=== PATIENT | female | born 1940 | race Asian ===

== ENCOUNTER 2018-06-07 11:00 | Emergency (ER) | payer BC ==
--- NOTE | 2018-06-07 11:06 | PDOC ---
History of Present Illness - General Chief Complaint: Injury Stated Complaint: left ankle pain History Source: Patient Exam Limitations: No Limitations - History of Present Illness Initial Comments: 06/07/18 11:19 This is a 77 year old female with a history of HTN, HLD, DMII, who presents to ER with complaints of left ankle pain after tripping over a acorn yesterday. Patient states that her foot and ankle went inwards. Pain is mostly the lateral aspect of ankle with increased swelling. She has tried icing area, elevating leg , and wearing an [place] bandage, and Tylenol, without relief. She did not loose balance or injury any other area. She denies chest pain, sob, fever, chills, numbness, tingling. Pain is relieved with elevated, worse with weight bearing. She has sprained affected area 2-3 times in the past. NO surgeries or fractures. PMH:HTN, HLD, DMII PSH: none Social hx; from [place], lives with , denies tobacco, alcohol or drug use Allergies:none Past History - Past Medical History Allergies/Adverse Reactions: Allergies Allergy/AdvReac Type Severity Reaction Status Date / Time No Known Allergies Allergy Verified 06/07/18 11:04 Home Medications: Ambulatory Orders Aspirin [Aspir 81] 325 mg PO DAILY 04/08/14 Ramipril [Altace] 10 mg PO BID 06/07/18 Anemia: No Asthma: No Cancer: No Cardiac Disorders: No CVA: No COPD: No CHF: No Dementia: No Diabetes: Yes GI Disorders: No Disorders: No HTN: Yes Hypercholesterolemia: Yes Liver Disease: No Seizures: No Thyroid Disease: No - Surgical History Abdominal Surgery: Yes Appendectomy: No Cardiac Surgery: No Cholecystectomy: Yes Lung Surgery: No Neurologic Surgery: No Orthopedic Surgery: No - Suicide/Smoking/Psychosocial Hx Smoking History: Never smoked Hx Alcohol Use: Yes Drug/Substance Use Hx: No Substance Use Type: Alcohol Hx Substance Use Treatment: No Review of Systems - Review of Systems Able to Perform ROS?: Yes Is the patient limited [place] proficient: No Constitutional: No: Chills, Diaphoresis, Fever HEENTM: No: Blurred Vision Respiratory: No: Cough, Shortness of Breath Cardiac (ROS): Yes: Edema (left ankle). No: Chest Pain Musculoskeletal: Yes: Joint Swelling (ankle swelling after injury), Muscle Pain , Muscle Weakness. No: Back Pain Neurological: No: Headache, Numbness, Paresthesia, Tingling *Physical Exam - Physical Exam General Appearance: Yes: Appropriately Dressed Respiratory/Chest: positive: Lungs Clear, Normal Breath Sounds Cardiovascular: positive: Regular Rhythm, Regular Rate Musculoskeletal: positive: Decreased Range of Motion (left ankle) Extremity: positive: Swelling, Erythema, Other (left ankle swelling; decreased ROM on eversion of left foot, severe tenderness to palpation of lateral malleolus; metatarssal bones intact; no pain with palpation of head of fibula) Medical Decision Making - Medical Decision Making 06/07/18 11:32 This is a 77 year old female with a history of DMII, HTN, HLD, left ankle sprains, who presents after injury to left ankle. Left ankle sprain, r/o fracture. Will get xray of left ankle. 06/07/18 11:49 -ankle xray ; negative for acute fracture -advise rest; elevated; ice; Tylenol; Motrin for pain -will also refer to orthopedic surgeon *DC/Admit/Observation/Transfer Diagnosis at time of Disposition: Ankle sprain Qualifiers: Involved ligament of ankle: tibiofibular ligament Laterality: left - Discharge Dispostion Disposition: HOME Condition at time of disposition: Stable Decision to Admit order: No - Referrals Referrals: Christiano Lara MD [Staff Physician] - - Patient Instructions Printed Discharge Instructions: Ankle Sprain Additional Instructions: Ms. Johnson, you have sprain you ankle. Please continue with supportive therapy, including rest, ice, pain control and less weight bearing, [place] bandage. Use your cane for support. We have given you information of an orthopedic surgeon if necessary. If you experience any worsening of symptoms including inability to ambulate, fever, fall, please return to the emergency room. - Post Discharge Activity
[2018-06-07 11:08] VITALS: BP 153/67; PULSE 64; TEMP 98.4; BMI 26.9
--- NOTE | 2018-06-07 12:25 | PDOC ---
Attending Attestation - Resident Resident Name: Isabella Allen - ED Attending Attestation I have performed the following: I have examined & evaluated the patient, The case was reviewed & discussed with the resident, I agree w/resident's findings & plan, Exceptions are as noted - HPI HPI: 06/07/18 12:23 Inversion injury of the left ankle. Pain and swelling laterally. Pain with weightbearing, limping, using a cane. Did not fall. No other injuries - Physicial Exam PE: 06/07/18 12:24 Left ankle shows soft tissue swelling laterally, point tenderness over the lateral malleolus, no fifth metatarsal deformity or tenderness. Pulses full. No sensory deficits. X-ray: Soft tissue swelling, no fracture - Medical Decision Making 06/07/18 12:24 Assessment: Ankle sprain Plan: Rest ice and elevate ankle support. Patient has crutches and a cane for use if needed. Follow-up orthopedist if no improvement. Adequately ambulatory in no significant pain upon discharge with to follow-up as directed.
== END 2018-06-07 12:01 | disposition home or self-care (01) ==
LOC: FER 11:00
DX: S93.402A Sprain of unspecified ligament of left ankle, initial encounter (principal); W22.8XXA Striking against or struck by other objects, initial encounter; Y93.89 Activity, other specified; Y92.410 Unspecified street and highway as the place of occurrence of the external cause; E11.9 Type 2 diabetes mellitus without complications; I10 Essential (primary) hypertension; E78.5 Hyperlipidemia, unspecified
CPT/HCPCS: 73610-TC-LT-FY; 99282-25

== ENCOUNTER 2019-08-07 12:35 | Inpatient (IN) | payer BC ==
--- NOTE | 2019-08-07 12:37 | PDOC ---
Attending Attestation - Resident Resident Name: Joseph Francis - ED Attending Attestation I have performed the following: I have examined & evaluated the patient, The case was reviewed & discussed with the resident, I agree w/resident's findings & plan, Exceptions are as noted - HPI HPI: 08/07/19 13:18 78yo female with dysuria, freq, urgency, and lower abd pain. Pt denies f/c. Pt was treated by urgent care with cefuroxime around new years and then started on bactrim Aug 04. States still with symptoms today. Has been compliant with all meds. No cva ttp. Pt with + culture from Urgent care for Kleb pneumo in the urine. - Physicial Exam PE: 08/07/19 13:20 Gen: aaox3, nad heart:+s1s2 reg lungs: cta b/l abd: soft, suprapubic ttp, no cva ttp, no rebound or guarding ext: no c/c/e - Medical Decision Making 08/07/19 12:38 PMH:HTN, HLD, DMII PSH: none Social hx; from [facility], lives with , denies tobacco, alcohol or drug use Allergies:none 08/07/19 13:22 a/p: 78yo female with recent dx of UTI on bactrim -suspect failed outpt therapy -cultures are lujan sensitive -on 2nd course of outpt abx -will send labs, cultures, ua, ucx -will monitor and reassess 08/07/19 13:24 ua +nitrites and 2+ leuks will start iv abx 08/07/19 14:[address] Lovett for admission 08/07/19 14:[address] Monaco who accepts pt to service Heart Score/ECG Review - ECG Intrepretation Comment:: 08/07/19 13:02 sinus at 66, pacs, nl axis, rbbb, t wave inversions anterior leads, abnl ekg
--- NOTE | 2019-08-07 12:41 | PDOC ---
History of Present Illness - General Chief Complaint: Urinary Problem Stated Complaint: uti? - History of Present Illness Initial Comments: The pt is 78F w/ a history of NIDDM, HTN, HLD who presents for evaluation of urinary discomfort and frequency with known UTI s/p cefuroxime and currently on day 4 of Bactrim w/o resolution of symptoms. +suprapubic discomfort Bactrim for 3 days +frequency -odor, dysuria PMH: DM, HTN, HLD 08/07/19 12:37 Past History - Past Medical History Allergies/Adverse Reactions: Allergies Allergy/AdvReac Type Severity Reaction Status Date / Time No Known Allergies Allergy Verified 06/07/18 11:04 Home Medications: Ambulatory Orders Amlodipine Besylate 10 mg PO DAILY 08/07/19 Anemia: No Asthma: No Cancer: No Cardiac Disorders: No CVA: No COPD: No CHF: No Dementia: No Diabetes: Yes GI Disorders: No Disorders: No HTN: Yes Hypercholesterolemia: Yes Liver Disease: No Seizures: No Thyroid Disease: No - Surgical History Abdominal Surgery: Yes Appendectomy: No Cardiac Surgery: No Cholecystectomy: Yes Lung Surgery: No Neurologic Surgery: No Orthopedic Surgery: No - Psycho Social/Smoking Cessation Hx Smoking History: Never smoked Hx Alcohol Use: Yes Drug/Substance Use Hx: No Substance Use Type: Alcohol Hx Substance Use Treatment: No Review of Systems - Review of Systems Able to Perform ROS?: Yes Comments:: GENERAL/CONSTITUTIONAL: No fever or chills. No weakness HEAD, EYES, EARS, NOSE AND THROAT: No change in vision. No change in hearing. No sore throat CARDIOVASCULAR: No chest pain or shortness of breath RESPIRATORY: Denies cough, hemoptysis GASTROINTESTINAL: No nausea, vomiting, diarrhea or constipation GENITOURINARY: per HPI MUSCULOSKELETAL: No joint or muscle swelling or pain. No neck or back pain SKIN: No rash NEUROLOGIC: No headache, vertigo, loss of consciousness, or change in strength/ sensation ENDOCRINE: No increased thirst. No abnormal weight change HEMATOLOGIC/LYMPHATIC: No anemia, easy bleeding, or history of blood clots ALLERGIC/IMMUNOLOGIC: No hives or skin allergy 08/07/19 12:44 Is the patient limited Citizen [place] proficient: No *Physical Exam - Vital Signs Initial Vital Signs Temp Pulse Resp BP Pulse Ox 98.5 F 57 L 20 151/68 98 08/07/19 12:36 08/07/19 12:36 08/07/19 12:36 08/07/19 12:36 08/07/19 12:36 08/07/19 15:41 - Physical Exam GENERAL: Awake, alert, and oriented to person/place/time, in no acute distress HEAD: No signs of trauma, normoc ephalic, atraumatic EYES: PERRLA, EOMI, sclera anicteric, conjunctiva clear ENT: Hearing grossly normal, nares patent, oropharynx clear without exudates. Moist mucosa LUNGS: No distress, speaks in full sentences, clear to auscultation bilaterally HEART: Regular rate and rhythm, normal S1 and S2, no murmurs appreciated, peripheral pulses normal and equal bilaterally ABDOMEN: Soft, mild suprapubic TTP w/o rebound or guarding, normoactive bowel sounds EXTREMITIES: Normal inspection, Normal range of motion, no edema. No clubbing or cyanosis NEUROLOGICAL: Cranial nerves II through XII grossly intact. Normal speech, normal gait, no focal sensorimotor deficits SKIN: Warm, Dry 08/07/19 12:45 ED Treatment Course - LABORATORY CBC & Chemistry Diagram: 08/07/19 13:40 08/07/19 13:40 Medical Decision Making - Medical Decision Making The pt is 78F w/ a history of NIDDM, HTN, HLD who presents for evaluation of urinary discomfort and frequency with known UTI s/p cefuroxime and currently on day 4 of Bactrim w/o resolution of symptoms. Pt w/ likely UTI that has failed outpatient management ED Course UA, UCx, CMP, CBC, Blood cultures ECG 08/07/19 12:45 UA w/ evidence of UTI -Cefepime 1g IV once Plan for admission for IV abx for UTI that failed outpt therapy 08/07/19 13:28 ECG w/ RBBB; HR 66; PACs in bigeminy, QTc 463, no axis deviation, abn ecg 08/07/19 13:30 No leukocytosis No anemia Lytes wnl No YUNG LFTs wnl Pt singed out to Dr. Monaco for admission Discharge - Discharge Information Problems reviewed: Yes Clinical Impression/Diagnosis: HTN (hypertension) Qualifiers: Hypertension type: unspecified Qualified Code(s): I10 - Essential (primary) hypertension UTI (urinary tract infection) Qualifiers: Urinary tract infection type: site unspecified Hematuria presence: without hematuria Qualified Code(s): N39.0 - Urinary tract infection, site not specified Condition: Good - Admission Yes - Follow up/Referral - Patient Discharge Instructions - Post Discharge Activity
[2019-08-07 13:09] VITALS: BMI 26.5
[2019-08-07] MEDS ORDERED: CEFEPIME HCL/D5W 1 GM/50 ML BAG IVPB ONE (13:19)
[2019-08-07 13:54] LABS: BASO % 0.8 % (0-2.0); EOS % 1.8 % (0-4.5); HEMATOCRIT 38.1 % (32.4-45.2); HEMOGLOBIN 12.5 GM/dl (10.7-15.3); LYMPH % 28.2 % (8-40); MCH 29.5 pg (25.7-33.7); MCHC 32.8 g/dl (32.0-36.0); MEAN CELL VOLUME 89.9 fl (80-96); MEAN PLT VOLUME 7.4 fl (7.5-11.1); MONO % 5.7 % (3.8-10.2); NEUT % 63.5 % (42.8-82.8); PLATELET COUNT 270 K/MM3 (134-434); RBC 4.24 M/mm3 (3.60-5.2); RDW 13.3 % (11.6-15.6); WHITE BLOOD COUNT 6.2 K/mm3 (4.0-10.8)
[2019-08-07 14:02] LABS: ALBUMIN 4.3 g/dl (3.4-5.0); BILIRUBIN,TOTAL 0.8 mg/dl (0.2-1); CALCIUM 9.3 mg/dl (8.5-10); CREATININE 0.8 mg/dl (0.55-1.3); POTASSIUM 4.2 mmol/L (3.5-5.1); TOT PROT 7.2 g/dl (6.4-8.2)
--- NOTE | 2019-08-07 15:39 | HP ---
CHIEF COMPLAINT: PCP: HISTORY OF PRESENT ILLNESS: ER course was notable for: (1) (2) (3) Recent Travel: PAST MEDICAL HISTORY: PAST SURGICAL HISTORY: Social History: Smoking: Alcohol: Drugs: Allergies No Known Allergies Allergy (Verified 06/07/18 11:04) HOME MEDICATIONS: Home Medications Medication Instructions Recorded Amlodipine Besylate 10 mg PO DAILY 08/07/19 REVIEW OF SYSTEMS CONSTITUTIONAL: Absent: fever, chills, diaphoresis, generalized weakness, malaise, loss of appetite, weight change HEENT: Absent: rhinorrhea, nasal congestion, throat pain, throat swelling, difficulty swallowing, mouth swelling, ear pain, eye pain, visual changes CARDIOVASCULAR: Absent: chest pain, syncope, palpitations, irregular heart rate, lightheadedness , peripheral edema RESPIRATORY: Absent: cough, shortness of breath, dyspnea with exertion, orthopnea, wheezing, stridor, hemoptysis GASTROINTESTINAL: Absent: abdominal pain, abdominal distension, nausea, vomiting, diarrhea, constipation, melena, hematochezia GENITOURINARY: Absent: dysuria, frequency, urgency, hesitancy, hematuria, flank pain, genital pain MUSCULOSKELETAL: Absent: myalgia, arthralgia, joint swelling, back pain, neck pain SKIN: Absent: rash, itching, pallor HEMATOLOGIC/IMMUNOLOGIC: Absent: easy bleeding, easy bruising, lymphadenopathy, frequent infections ENDOCRINE: Absent: unexplained weight gain, unexplained weight loss, heat intolerance, cold intolerance NEUROLOGIC: Absent: headache, focal weakness or paresthesias, dizziness, unsteady gait, seizure, mental status changes, bladder or bowel incontinence PSYCHIATRIC: Absent: anxiety, depression, suicidal or homicidal ideation, hallucinations. PHYSICAL EXAMINATION Vital Signs - 24 hr 08/07/19 12:36 Temperature 98.5 F Pulse Rate 57 L Respiratory 20 Rate Blood Pressure 151/68 O2 Sat by Pulse 98 Oximetry (%) GENERAL: Awake, alert, and fully oriented, in no acute distress. HEAD: Normal with no signs of trauma. EYES: Pupils equal, round and reactive to light, extraocular movements intact, sclera anicteric, conjunctiva clear. No lid lag. EARS, NOSE, THROAT: Ears normal, nares patent, oropharynx clear without exudates. Moist mucous membranes. NECK: Normal range of motion, supple without lymphadenopathy, JVD, or masses. LUNGS: Breath sounds equal, clear to auscultation bilaterally. No wheezes, and no crackles. No accessory muscle use. HEART: Regular rate and rhythm, normal S1 and S2 without murmur, rub or gallop. ABDOMEN: Soft, nontender, not distended, normoactive bowel sounds, no guarding, no rebound, no masses. No hepatomegaly or splenomegaly. MUSCULOSKELETAL: Normal range of motion at all joints. No bony deformities or tenderness. No CVA tenderness. UPPER EXTREMITIES: 2+ pulses, warm, well-perfused. No cyanosis. No clubbing. No peripheral edema. LOWER EXTREMITIES: 2+ pulses, warm, well-perfused. No calf tenderness. No peripheral edema. NEUROLOGICAL: Cranial nerves II-XII intact. Normal speech. Normal gait. PSYCHIATRIC: Cooperative. Good eye contact. Appropriate mood and affect. SKIN: Warm, dry, normal turgor, no rashes or lesions noted, normal capillary refill. Laboratory Results - last 24 hr 08/07/19 08/07/19 08/07/19 13:07 13:40 13:40 WBC 6.2 RBC 4.24 Hgb 12.5 Hct 38.1 MCV 89.9 MCH 29.5 MCHC 32.8 RDW 13.3 Plt Count 270 MPV 7.4 L Absolute Neuts (auto) 3.9 Neutrophils % 63.5 Lymphocytes % 28.2 Monocytes % 5.7 Eosinophils % 1.8 Basophils % 0.8 Sodium 135 L Potassium 4.2 Chloride 105 Carbon Dioxide 20 L Anion Gap 10 BUN 18.0 Creatinine 0.8 Est GFR (CKD-EPI)AfAm 81.84 Est GFR (CKD-EPI)NonAf 70.61 Random Glucose 102 Calcium 9.3 Total Bilirubin 0.8 AST 35 ALT 28 Alkaline Phosphatase 55 Total Protein 7.2 Albumin 4.3 Urine Color Yellow Urine Appearance Cloudy Urine pH 5.5 Urine Protein Negative Urine Glucose (UA) Negative Urine Ketones Negative Urine Blood Trace-intact Urine Nitrite Positive H Urine Bilirubin Negative Urine Urobilinogen 0.2 Ur Leukocyte Esterase 2+ Urine RBC 5-10 Urine WBC 80-100 Urine Bacteria Many ASSESSMENT/PLAN:
--- NOTE | 2019-08-07 16:04 | EKG ---
Test Reason : Blood Pressure : / mmHG Vent. Rate : 066 BPM Atrial Rate : 066 BPM P-R Int : 154 ms QRS Dur : 124 ms QT Int : 442 ms P-R-T Axes : 045 022 011 degrees QTc Int : 463 ms SINUS RHYTHM WITH PREMATURE ATRIAL COMPLEXES IN A PATTERN OF BIGEMINY RIGHT BUNDLE BRANCH BLOCK ABNORMAL ECG NO PREVIOUS ECGS AVAILABLE Confirmed by OMHAN MILES MD ([id number]) on 08/07/2019 4:03:43 PM Referred By: KELLI GUTHRIE Confirmed By:MOHAN MILES MD
[2019-08-07] MEDS ORDERED: ACETAMINOPHEN 325 MG TABLET (FP) PO PRN (20:16)
[2019-08-07] MEDS: HEPARIN NA (PORCINE) 5,000 UNITS/ML 1ML VIAL SQ SCH (21:52)
[2019-08-07] MEDS: metFORMIN HCL 500 MG TABLET (FP) PO SCH (21:52)
[2019-08-07] MEDS: sitaGLIPtin PHOSPHATE 50 MG TABLET PO SCH (21:52)
[2019-08-07] MEDS ORDERED: PATIENT'S OWN MEDICATION (NON-FORMULARY) (Sitagliptin Phos/Metformin Hcl [Janumet 50-1,000 PO SCH (22:00)
[2019-08-08] MEDS ORDERED: CEFEPIME HCL/D5W 1 GM/50 ML BAG IVPB SCH (02:00)
[2019-08-08] MEDS ORDERED: diphenhydrAMINE HCL 25 MG CAPSULE (FP) PO ONE (03:31)
[2019-08-08] MEDS ORDERED: diphenhydrAMINE HCL 25 MG CAPSULE (FP) PO PRN (03:33)
--- NOTE | 2019-08-08 03:47 | HOSP ---
Subjective - Review of Symptoms Events since last encounter: @ 3:13 RN notified patient noted with rash around IV site post antibiotic infusion (cefepime). Rash noted around heplock and upper chest. Per nursing no acute SOB/ respiratory distress. Patient has no known allergies per record. V/S : 138/53, 97.5, 17, 57, Spo2: 98%. order Benadryl 25 mg x1, Benadryl 25 mg q6 hrs PRN, d/c IV antibiotics, ordered ID consult to see patient in am for further IV antibiotic management. RN informed if patient noted with acute symptoms have ER attending evaluate patient as I am at [facility], and not able to come in person. Monitor vitals closely. Physical Examination Vital Signs: Vital Signs Temperature 97.5 F L 08/08/19 03:14 Pulse Rate 57 L 08/08/19 03:14 Respiratory Rate 17 08/08/19 03:14 Blood Pressure 138/53 L 08/08/19 03:14 O2 Sat by Pulse Oximetry (%) 98 08/08/19 00:59 Labs: CBC, BMP 08/07/19 13:40 08/07/19 13:40
--- NOTE | 2019-08-08 08:44 | PN ---
Progress Note (short form) - Note Progress Note: ID consult dictated 78 yo female presented to ED yesterday with urinary discomfort no fevers, no back pain pmh of htn and DM pcp dr german seen in [facility] with similar comlaints 07/25- treated with ceftin 500 bid for 7 days symptoms resolved, then recurred seen in [facility] 08/04 and prescribed bactrim which she is taking reports recurrent discomfort no fevers no flank pain no leukocytosis +pyuria feels improved this am, no dysuria ER reports outpt lujan sensitive Klebsiella- given cefepime in ED- no reaction, when dose was given at 2 am she developed itching/rash at infusion site and anterior chest near neck no sob, resolved with benadryl will add to allergies recurrent UTI/cystitis -prior ceftin, bactrim cefepime allergy suggest switch to po macrobid for 7 days, f/u cultures renal/bladder sonogram given recurrent symptoms consider gyne eval in this postmenopausal woman as outpt- ?estrogen cream for atrophic vaginitis suspect could follow up with urology and PMD as outpt
[2019-08-08 08:57] LABS: HEMATOCRIT 36.8 % (32.4-45.2); HEMOGLOBIN 12.1 GM/dl (10.7-15.3); MCH 29.8 pg (25.7-33.7); MCHC 32.9 g/dl (32.0-36.0); MEAN CELL VOLUME 90.7 fl (80-96); MEAN PLT VOLUME 7.5 fl (7.5-11.1); PLATELET COUNT 240 K/MM3 (134-434); RBC 4.05 M/mm3 (3.60-5.2); RDW 13.7 % (11.6-15.6)
[2019-08-08 09:06] LABS: CALCIUM 8.7 mg/dl (8.5-10); CREATININE 0.8 mg/dl (0.55-1.3); POTASSIUM 4.2 mmol/L (3.5-5.1)
[2019-08-08 09:45] VITALS: BP 137/57; PULSE 59; TEMP 98.4
[2019-08-08] MEDS: sitaGLIPtin PHOSPHATE 50 MG TABLET PO SCH (09:46)
[2019-08-08] MEDS: metFORMIN HCL 500 MG TABLET (FP) PO SCH (09:46)
[2019-08-08] MEDS: HEPARIN NA (PORCINE) 5,000 UNITS/ML 1ML VIAL SQ SCH (09:46)
[2019-08-08] MEDS ORDERED: PATIENT'S OWN MEDICATION (NON-FORMULARY) (Ramipril [Altace] 10 MG) PO SCH (10:00)
[2019-08-08] MEDS ORDERED: metoPROLOL SUCCINATE 25 MG TAB.SR.24H (FP) PO SCH (10:00)
[2019-08-08] MEDS ORDERED: amLODIPine BESYLATE 10 MG TABLET (FP) PO SCH (10:00)
[2019-08-08] MEDS ORDERED: RAMIPRIL 5 MG CAPSULE (FP) PO SCH (10:00)
--- NOTE | 2019-08-08 11:44 | DS ---
Physical Examination Vital Signs: Vital Signs Temperature 98.4 F 08/08/19 09:29 Pulse Rate 59 L 08/08/19 09:29 Respiratory Rate 18 08/08/19 09:29 Blood Pressure 137/57 L 08/08/19 09:29 O2 Sat by Pulse Oximetry (%) 95 08/08/19 09:29 Labs: CBC, BMP 08/08/19 06:50 08/08/19 06:50 Discharge Summary Problems reviewed: Yes Reason For Visit: UTI/HYPERTENSION Current Active Problems HTN (hypertension) (Acute) UTI (urinary tract infection) (Acute) Hospital Course: - Problems (1) Diabetes Assessment/Plan: BGM SAME MEDS Code(s): E11.9 - TYPE 2 DIABETES MELLITUS WITHOUT COMPLICATIONS (2) HTN (hypertension) Assessment/Plan: MONITOR Code(s): I10 - ESSENTIAL (PRIMARY) HYPERTENSION Qualifiers: Hypertension type: unspecified Qualified Code(s): I10 - Essential (primary ) hypertension (3) UTI (urinary tract infection) Assessment/Plan: D/W ID--PT COMFOTABLE AND AFEBRILE NOMAL WBC--ORAL MEDS DC HOME Code(s): N39.0 - URINARY TRACT INFECTION, SITE NOT SPECIFIED Qualifiers: Urinary tract infection type: site unspecified Hematuria presence: without hematuria Qualified Code(s): N39.0 - Urinary tract infection, site not specified Condition: Good - Instructions Diet, Activity, Other Instructions: make appointment with urologist--dr Amaya Referrals: Ravinder Armando MD [Primary Care Provider] - 1 Week Disposition: HOME - Home Medications Comprehensive Discharge Medication List: Ambulatory Orders Amlodipine Besylate 10 mg PO DAILY 08/07/19 Nitrofurantoin Monohyd/M-Cryst [Macrobid -] 100 mg PO BID #14 capsule 08/08/19
--- NOTE | 2019-08-08 11:44 | HP ---
Admitting History and Physical - Admission History of Present Illness: 78yo female with dysuria, freq, urgency, and lower abd pain. Pt denies f/c. Pt was treated by urgent care with cefuroxime around new years and then started on bactrim Aug 04. States still with symptoms today. Has been compliant with all meds. No cva ttp. Pt with + culture from Urgent care for Kleb pneumo in the urine. - Past Medical History Cardiovascular: Yes: HTN, Hyperlipdemia Renal/: Yes: UTI Endocrine: Yes: Diabetes Mellitus - Smoking History Smoking history: Never smoked Have you smoked in the past 12 months: No - Alcohol/Substance Use Hx Alcohol Use: Yes Home Medications - Allergies Allergies/Adverse Reactions: Allergies Allergy/AdvReac Type Severity Reaction Status Date / Time cefepime Allergy Intermediate Itching/poornima Verified 08/08/19 08:55 h - Home Medications Home Medications: Ambulatory Orders Amlodipine Besylate 10 mg PO DAILY 08/07/19 Nitrofurantoin Monohyd/M-Cryst [Macrobid -] 100 mg PO BID #14 capsule 08/08/19 Review of Systems - Review of Systems Cardiovascular: reports: No Symptoms Respiratory: reports: No Symptoms Gastrointestinal: reports: No Symptoms Genitourinary: reports: Frequency Physical Examination Vital Signs: Vital Signs Temperature 98.4 F 08/08/19 09:29 Pulse Rate 59 L 08/08/19 09:29 Respiratory Rate 18 08/08/19 09:29 Blood Pressure 137/57 L 08/08/19 09:29 O2 Sat by Pulse Oximetry (%) 95 08/08/19 09:29 Cardiovascular: Yes: Regular Rate and Rhythm Respiratory: Yes: Regular, CTA Bilaterally Gastrointestinal: Yes: Normal Bowel Sounds, Soft. No: Tenderness Labs: CBC, BMP 08/08/19 06:50 08/08/19 06:50 Problem List - Problems (1) Diabetes Assessment/Plan: BGM SAME MEDS Code(s): E11.9 - TYPE 2 DIABETES MELLITUS WITHOUT COMPLICATIONS (2) HTN (hypertension) Assessment/Plan: MONITOR Code(s): I10 - ESSENTIAL (PRIMARY) HYPERTENSION Qualifiers: Hypertension type: unspecified Qualified Code(s): I10 - Essential (primary ) hypertension (3) UTI (urinary tract infection) Assessment/Plan: D/W ID--ORAL MEDS DC HOME Code(s): N39.0 - URINARY TRACT INFECTION, SITE NOT SPECIFIED Qualifiers: Urinary tract infection type: site unspecified Hematuria presence: without hematuria Qualified Code(s): N39.0 - Urinary tract infection, site not specified
[2019-08-08] MEDS ORDERED: NITROFURANTOIN MACROCRYSTAL 50 MG CAPSULE (FP) PO SCH (12:00)
--- NOTE | 2019-08-08 17:36 | CONS ---
DATE OF CONSULTATION: DATE OF DICTATION: 08/08/2019 This is a 78-year-old woman, past medical history of hypertension, diabetes. She reports that back in January, she had a UTI, again one in April. She says man years ago, she had similar episodes. This was in January, again in April. She had a UTI at the end of June, which she describes her symptoms are some vague discomfort on urination. There is no hematuria, there are no fevers or chills, there is no flank pain. She went to the [facility] with these complaints and was prescribed Ceftin 500 mg p.o. b.i.d. that she took for 7 days with resolution. Then she noted again she had some vague urinary complaints again, just some discomfort. Again she was prescribed Bactrim on the 04 of August, which she took until she came on the to the ER and her complaint again, she tells me, are vague urinary discomfort. She had no abdominal pain, she had no flank pain, she had no fevers or chills. She was admitted with these complaints. She got a dose of cefepime in the ER, was given another dose at 3 a.m., at which time she developed itching at the IV site accompanied by some rash and apparently some itching and rash in the upper part of her chest near her neck, all of which resolved with stopping the antibiotics and taking some Benadryl. She currently feels well and is asymptomatic. Her past medical history is notable for hypertension, hyperlipidemia, type 2 diabetes. She is followed as an outpatient in [place]. She has never had any surgery. She does have a remote history of UTI in the past. SOCIAL HISTORY: She lives with her . [place]. No history of cigarette, alcohol, or substance use. Family history is noncontributory. REVIEW OF SYSTEMS: No fevers, chills, nausea or vomiting, or diarrhea. PHYSICAL EXAMINATION: Vital Signs: Temperature is 98.4. Pulse of 59. Blood pressure 137/57. Respiratory rate 18. She never had fever. HEENT: Normocephalic. Her eyes are anicteric. Neck: Supple. Lungs: Clear to auscultation. Heart: Regular rate and rhythm. Abdomen: Soft, nontender. Extremities: Without edema. Skin: She has no rash. White count is normal, as well as her entire CBC is normal, her LFTs are normal. Chemistries are notable for a potassium of 4.2, a chloride of 109, BUN and creatinine are normal. Urinalysis has 2+ leukocytes, 80 to 100 white cells. In summary, this is a 78-year-old woman with recurrent UTI, cystitis. No fevers, no flank pain. Per the ER notes, she had an outpatient lujan-sensitive Klebsiella. She has developed a rash to the cefepime, so would suggest switching her to oral Macrobid for 7 days and follow up her cultures. Renal and bladder ultrasound, given the recurrent symptoms. 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 She may benefit from estrogen cream for atrophic vaginitis. Suspect she could follow up with urology and her primary as an outpatient. Case was discussed with Dr. Monaco. SAMSON BOONE M.D. ANGELINA/[id number]
== END 2019-08-08 12:37 | disposition home or self-care (01) | DRG 690 ==
LOC: FER 12:35 → FM/S 12:47
PROVIDERS: ADMIT Family Medicine; ATTEND Family Medicine
DX: N39.0 Urinary tract infection, site not specified (principal); I10 Essential (primary) hypertension; E11.9 Type 2 diabetes mellitus without complications; E78.5 Hyperlipidemia, unspecified
CPT/HCPCS: 36415; 80048; 80053; 81003; 81015; 82962; 85025; 85027; 87040; 87086; 87186; 93005; 99285-25; J1644

== ENCOUNTER 2020-04-20 10:54 | Inpatient (IN) | payer BC, OTHER ==
--- NOTE | 2020-04-20 11:17 | PDOC ---
History of Present Illness - General Chief Complaint: CVA/TIA Stated Complaint: gait trouble Time Seen by Provider: 04/20/20 11:00 - History of Present Illness Initial Comments: HPI: 79yo F with a PMH of DM, HTN, HLD who presents for evaluation of gait abnormality. Patient initially presented to an urgent care center and was ref erred to the emergency department for further evaluation. Was in her usual state of health yesterday and went to bed at 1am. Woke up and ambulated to the bathroom, noticing that while she was trying to walk straight ahead, instead she listed and veered to the left. Patient believes something similar happened about twenty years ago which self-resolved. No falls or syncope. Patient denies personal or family history of stroke. Without focal weakness or slurred speech. No fevers, chills, chest pain, or shortness of breath. PCP: Dr. Armando ROS: Constitutional: no fever, no chills HEENT: no throat pain, no dysphagia Cardiovascular: no chest pain, no palpitations Respiratory: no cough, no shortness of breath Gastrointestinal: no abdominal pain, +nausea Genitourinary: no dysuria, no hematuria Musculoskeletal: no myalgia, no arthralgia Skin: no rash, no itching Neurologic: no headache, +gait abnormality Psych: no agitation, no anxiety PE: General: Awake, alert, and fully oriented, in no acute distress Head: No signs of trauma Eyes: EOMI, sclera anicteric ENT: Moist mucus membranes Neck: Normal ROM, supple Lungs: Lungs clear, Normal breath sounds Cardio: Regular rhythm, S1 and S2 present Abdomen: Soft, nontender. No guarding, no rebound, no masses Extremities: Normal range of motion, Distal pulses present Skin: Warm, Dry, normal turgor Neurologic: Please see NIHSS. Nasolabial flattening on the right. Gait lists to the left upon ambulation ED Course/MDM: DDX including but not limited to stroke, ACS, PE, PNA, anemia, metabolic derangement Stroke workup NIHSS score of 1 Not a TPA candidate as patient is outside the window Will reassess 04/20/20 11:17 EKG with RBBB, also present in previous EKG CT Head as reported by radiology: "TECHNIQUE: Sequential axial images were obtained from the base of the skull to the vertex. There is no evidence of acute intracranial hemorrhage, mass lesions or infarctions. There is a mild degree of diffuse cerebral atrophy with sulcal widening and ventricular dilatation. IMPRESSION: No evidence of acute intracranial pathology. Reported By: Michel Garcia MD 04/20/20 1142 " No bleed on CT Head; 324 ASA ordered Discussed case with KELLY Mahajan who accepted patient for admission under Dr. Og Pending consultation to Dr. Jenkins, neurologist; awaiting callback 04/20/20 11:[address] Jenkins who does not customarily come to [place], but he will have a provider on his team come evaluate her. Requested that I clarify if the patient is taking ASA as listed on her medication list. 04/20/20 11:52 Patient used to be on 325mg ASA, but has not taken it for 2-3 years (did not und erstand the purpose of it and disliked bleeding when she had dental procedures. 04/20/20 11:[address] Armando's office (spoke with both Dr. Fish and a nurse, however not Dr. Armando himself) that patient is to be admitted to the hospitalist group 04/20/20 12:26 CXR as reported by radiology: "A single AP view of the chest has been submitted. There are clear lungs with costal cartilage calcifications, sharp angles, slightly tortuous aorta, normal janeen and normal heart. There may be some scarring or atelectasis by the right hilum. The soft tissues are intact. There are some degenerative changes. Correlation recommended Impression: No acute chest pathology. Reported By: Jhonny Barba MD 04/20/20 1144 " CBC WBC 5.9 K/mm3 (4.0-10.8) 04/20/20 11:06 RBC 4.35 M/mm3 (3.60-5.2) 04/20/20 11:06 Hgb 13.4 GM/dl (10.7-15.3) 04/20/20 11:06 Hct 39.7 % (32.4-45.2) 04/20/20 11:06 MCV 91.1 fl (80-96) 04/20/20 11:06 MCH 30.8 pg (25.7-33.7) 04/20/20 11:06 MCHC 33.8 g/dl (32.0-36.0) 04/20/20 11:06 RDW 13.5 % (11.6-15.6) 04/20/20 11:06 Plt Count 306 K/MM3 (134-434) 04/20/20 11:06 MPV 6.5 fl (7.5-11.1) L 04/20/20 11:06 Absolute Neuts (auto) 3.6 K/mm3 04/20/20 11:06 Neutrophils % 60.0 % (42.8-82.8) 04/20/20 11:06 Lymphocytes % 33.2 % (8-40) 04/20/20 11:06 Monocytes % 4.5 % (3.8-10.2) 04/20/20 11:06 Eosinophils % 1.7 % (0-4.5) 04/20/20 11:06 Basophils % 0.6 % (0-2.0) 04/20/20 11:06 No leukocytosis or anemia CMP Sodium 137 mmol/L (136-145) 04/20/20 11:06 Potassium 3.5 mmol/L (3.5-5.1) 04/20/20 11:06 Chloride 107 mmol/L (98-107) 04/20/20 11:06 Carbon Dioxide 22 mmol/L (21-32) 04/20/20 11:06 Anion Gap 8 MMOL/L (8-16) 04/20/20 11:06 BUN 12.0 mg/dl (7-18) 04/20/20 11:06 Creatinine 0.7 mg/dl (0.55-1.3) 04/20/20 11:06 Est GFR (CKD-EPI)AfAm 95.51 04/20/20 11:06 Est GFR (CKD-EPI)NonAf 82.41 04/20/20 11:06 POC Glucometer 174 UNITS (80-120) 04/20/20 10:58 Random Glucose 169 mg/dl (74-106) H 04/20/20 11:06 Calcium 8.8 mg/dl (8.5-10) 04/20/20 11:06 Total Bilirubin 1.1 mg/dl (0.2-1) H 04/20/20 11:06 AST 45 U/L (15-37) H 04/20/20 11:06 ALT 45 U/L (13-61) 04/20/20 11:06 Alkaline Phosphatase 56 U/L (45-117) 04/20/20 11:06 Creatine Kinase 116 U/L (26-192) 04/20/20 11:06 Troponin I < 0.03 ng/ml (0.00-0.05) 04/20/20 11:06 Total Protein 7.2 g/dl (6.4-8.2) 04/20/20 11:06 Albumin 4.3 g/dl (3.4-5.0) 04/20/20 11:06 Triglycerides 197 mg/dl (0-150) H 04/20/20 11:06 Triglycerides 200 mg/dl (0-150) H 04/20/20 11:06 Cholesterol 214 mg/dl (50-200) H 04/20/20 11:06 Cholesterol 215 mg/dl (50-200) H 04/20/20 11:06 Total LDL Cholesterol 111 mg/dL (5-100) H 04/20/20 11:06 Total LDL Cholesterol 114 mg/dl (5-100) H 04/20/20 11:06 HDL Cholesterol 62 mg/dl (40-60) H 04/20/20 11:06 HDL Cholesterol 63 mg/dl (40-60) H 04/20/20 11:06 Electrolytes unremarkable Normal Cr Mildly elevated AST Tpn undetectable High HDL, cholesterol, and triglycerides Patient transported to telemetry floor 04/20/20 12:42 tPA Exclusion checklist 3-4.5h - Time Elapsed Date last known well: 04/20/20 Time last known well: 01:00 Elaspsed time: Day(s) and 11 Hour(s) and 41 Minutes - Thrombolytic Therapy Candidate Is patient eligible for thrombolytic therapy: No - Ineligibility reason(s) Reasons No tPA given: Outside of window - delayed arrival NIH Stroke Scale - Last Known Well Date/Time & Onset Date Last Known Well: 04/20/20 Time Last Known Well: 01:00 - Initial Evaluation Level of consciousness: Alert Ask patient the month and their age: Answers both correctly Ask patient to open & close eyes; make fist and let go: Obeys both correctly Best gaze (horizontal eye movement): Normal Visual field testing: No visual field loss Facial paresis (Show teeth/raise eyebrows/close eyes tight): Minor paralysis (flattened nasolabial fold, asymmetry on smiling) Motor Function: Left Arm: Normal Motor Function: Right Arm: Normal (extends arm 90 (or 45) degrees for 10 seconds without drift Motor Function: Left Leg: Normal (extends leg 30 degrees for 5 seconds without drift) Motor Function: Right Leg: Normal (extends leg 30 degrees for 5 seconds without drift) Limb Ataxia: No ataxia Sensory(Use pinprick test arms,legs,trunk,face/side to side): Normal Best language (Describe picture, name items, read sentences): No Aphasia Dysarthria (read several words): Normal articulation Extinction and Inattention: No abnormality - Total Score NIH Stroke Scale Score: 1 Past History - Medical History Allergies/Adverse Reactions: Allergies Allergy/AdvReac Type Severity Reaction Status Date / Time cefepime Allergy Intermediate Itching/poornima Verified 04/20/20 10:56 h Home Medications: Ambulatory Orders Amlodipine Besylate [Norvasc -] 10 mg PO DAILY 04/20/20 Metoprolol Succinate [Toprol Xl] 25 mg PO DAILY 04/20/20 Ramipril [Altace] 10 mg PO BID 04/20/20 Sitagliptin Phos/Metformin HCl [Janumet 50-1,000 mg Tablet] 1 each PO BID 04/20/20 Anemia: No Asthma: No Cancer: No Cardiac Disorders: No CVA: No COPD: No CHF: No Dementia: No Diabetes: Yes GI Disorders: No Disorders: No HTN: Yes Hypercholesterolemia: Yes Liver Disease: No Seizures: No Thyroid Disease: No - Surgical History Abdominal Surgery: Yes Appendectomy: No Cardiac Surgery: No Cholecystectomy: Yes Lung Surgery: No Neurologic Surgery: No Orthopedic Surgery: No - Reproductive History Is Patient Now?: No - Psycho-Social/Smoking History Smoking History: Never smoked Have you smoked in the past 12 months: No - Substance Abuse Hx (Audit-C & DAST Scrn) How often the patient has a drink containing alcohol: Never Score: In Men: 4 or > Positive; In Women: 3 or > Positive: 0 Screen Result (Pos requires Nsg. Audit-10AR): Negative In the last yr the pt used illegal drug/Rx for NonMed reason: No Score: Yes response is considered Positive: 0 Screen Result (Positive result requires Nsg. DAST-10): Negative *Physical Exam - Vital Signs Last Vital Signs Temp Pulse Resp BP Pulse Ox 98.1 F 90 19 153/98 100 04/20/20 10:56 04/20/20 10:56 04/20/20 10:56 04/20/20 10:56 04/20/20 10:56 ED Treatment Course - LABORATORY CBC & Chemistry Diagram: 04/20/20 11:06 04/20/20 11:06 - ADDITIONAL ORDERS Additional order review: Laboratory Results 04/20/20 10:58 POC Glucometer 174 04/20/20 10:58 POC Glucometer 174 Discharge - Discharge Information Problems reviewed: Yes Clinical Impression/Diagnosis: Gait abnormality, Facial droop Condition: Guarded - Admission Yes - Follow up/Referral - Patient Discharge Instructions - Post Discharge Activity
--- OUTSIDE RECORDS SUMMARY | 2020-04-20 11:18 | XMS ---
:1940 Author Organization [facility] Care Team Providers Name Role Phone Ze Telles Unavailable Unavailable Lainey Ndiaye Unavailable Unavailable Marielena Unavailable Unavailable Marielena Unavailable Unavailable Marielena Unavailable Unavailable Marielena Unavailable Unavailable Marielena Unavailable Unavailable Marielena Unavailable Unavailable Marielena Unavailable Unavailable Marielena Unavailable Unavailable Marielena Unavailable Unavailable Re-disclosure Warning The records that you are about to access may contain information from federally- assisted alcohol or drug abuse programs. If such information is present, then the following federally mandated warning applies: This information has been disclosed to you from records protected by federal confidentiality rules (42 CFR part 2). The federal rules prohibit you from making any further disclosure of this information unless further disclosure is expressly permitted by the written consent of the person to whom it pertains or as otherwise permitted by 42 CFR part 2. A general authorization for the release of medical or other information is NOT sufficient for this purpose. The Federal rules restrict any use of the information to criminally investigate or prosecute any alcohol or drug abuse patient.The records that you are about to access may contain highly sensitive health information, the redisclosure of which is protected by Article 27-F of the [facility] Public Health law. If you continue you may haveaccess to information: Regarding HIV / AIDS; Provided by facilities licensed or operated by the [facility] Office of Mental Health; or Provided by the [facility] Office for People With Developmental Disabilities. If such information is present, then the following [facility] mandated warning applies: This information has been disclosed to you from confidential records which are protected by state law. State law prohibits you from making any further disclosure of this information without the specific written consent of the person to whom it pertains, or as otherwise permitted by law. Any unauthorized further disclosure in violation of state law may result in a fine or senior living sentence or both. A general authorization for the release of medical or other information is NOT sufficient authorization for further disclosure. Allergies and Adverse Reactions Type Description Substance Reaction Status Data Source(s ) 3 NO KNOWN ALLERGIES Clindamycin 150 MG Oral NEXTGEN ([facility] Tablet [Clintabs] Medical - [facility]) Encounters Encounter Providers Location Date Indications Data Source(s ) Attender: Ravinder 04/17/2020 MEDGEN ( [facility] 12:00:00 AM [place] [facility]) Office Attender: Ravinder Peguero 04/17/2020 12:00:00 A EDT MEDGEN ([facility]) Office Attender: Ravinder Peguero 04/17/2020 12:00:00 A EDT MEDGEN ([facility]) Office Outpatient Attender: Ze 04/11/2020 01:49:00 PM NEXTGEN ([facility] EDT Medical [facility]) Outpatient Attender: Ze 09/02/2019 10:04:00 AM NEXTGEN ([facility] [place] EST Medical [facility]) Outpatient Attender: Ze 09/01/2019 11:00:00 AM NEXTGEN ([facility] SpencerReferrer: Louie BAIRD M ical [facility]) Outpatient Attender: Ze 08/25/2019 10:56:00 AM NEXTGEN ([facility] [place] EST Medical [facility]) Outpatient Attender: Ze 08/19/2019 02:22:00 PM NEXTGEN ([facility] [place] EST Medical [facility]) Outpatient Attender: Ze 08/17/2019 11:30:00 AM NEXTGEN ([facility] SpencerReferrer: EST Medical [facility]) Medications Medication Brand Start Product Dose Route Administrative Pharmacy [facility] Indications Reaction Description Data Name Date Form Instructions Instructions Source(s) Ramipril 10 RAMIPR 04/17/ CAPSULE 90 complet LINETTE IPRIL MEDGEN (St MG Oral [place]:261 2019 ed [facility] Capsule 962 12:00: Medical, RAMIPRIL:26 AM ) 1961 EDT 24 HR METOPR take 1 tablet RP NEX TGEN metoprolol OLOL by oral route ([facility] succinate SUCCIN every day Med ical - 50 MG ATE [facility]) Oral Tablet 50 mg 50 mg This may be an active medication. No end date is available. Start date above may not reflect actual date the medication was s tarted. Metformin hydrochloride JANUMET take 1 tablet by R P NEXTGEN ([facility] 1000 MG / sitagliptin oral route 2 [facility] [place] 50 MG Oral Tablet times every day Medical Group [facility]) [Janumet] 50 mg-1,000 with meals mg 50 mg-1,000 mg This may be an active medication. No end date is available. Start date above may not reflect actual date the medication was s tarted. Amlodipine 10 MG AMLODIPINE take 1 tablet RP NEXTGEN Oral Tablet 10 mg BESYLATE by oral route ([facility] 10 mg every day Medical - [facility]) This may be an active medication. No end date is available. Start date above may not reflect actual date the medication was s tarted. Ramipril 10 MG Oral RAMIPRIL take 1 capsule by RP NEXTGEN ([facility] Capsule 10 mg 10 mg oral route every [facility]) This may be an active medication. No end date is available. Start date above may not reflect actual date the medication was s tarted. methenamine HIPREX 04/11/2020 take 1 RP NEXTGEN hippurate 1000 MG 12:00:00 AM EDT tablet by ([facility] Oral Tablet oral route 2 [facility] [Hiprex] 1 gram 1 times every [facility] gram day Group PC) This may be an active medication. No end date is available. 24 HR metoprolol METOPROLOL:[id number] 03/17/2020 TABLET, 90 completed METOPROLOL MEDGEN succinate 25 MG 12:00:00 AM EXTENDED (St Extended Release EDT RELEASE [facility] Oral Tablet Medical, METOPROLOL:[id number] ) Amlodipine 10 MG AMLODIPINE:[id number] 03/17/2020 TABLET 90 completed AMLODIPINE MEDGEN Oral Tablet 12:00:00 AM ( St AMLODIPINE:[id number] EDT [facility], ) Metformin JANUMET:[id number] 03/17/2020 TABLET 180 completed JANUMET MEDGEN hydrochloride 1000 12:00:00 AM (St MG / sitagliptin EDT [facility] 50 MG Oral Tablet Me dical, [Janumet] ) JANUMET:[id number] 24 HR metoprolol METOPROLOL:[id number] 03/17/2020 TABLET, 90 completed METOPROLOL MEDGEN succinate 25 MG 12:00:00 AM EXTENDED ( Extended Release EDT RELEASE [facility] Oral Tablet [facility], METOPROLOL:[id number] ) Amlodipine 10 MG AMLODIPINE:[id number] 03/17/2020 TABLET 90 completed AMLODIPINE MEDGEN Oral Tablet 12:00:00 AM ( AMLODIPINE:188347 EDT [facility], ) Metformin JANUMET:[id number] 03/17/2020 TABLET 180 completed JANUMET MEDGEN hydrochloride 1000 12:00:00 AM (St MG / sitagliptin EDT [facility] 50 MG Oral Tablet Ga dical, [Janumet] ) JANUMET:[id number] Ramipril 10 MG RAMIPRIL:[id number] 10/22/2019 CAPSULE 90 compl eted RAMIPRIL MEDGEN Oral Capsule 12:00:00 AM ( RAMIPRIL:[id number] [facility], ) Estradiol 0.1 ESTRACE 09/02/2019 i RP NEXTGEN MG/ML Vaginal 12:00:00 AM n ([facility] Cream [Estrace] EST s t Me dical 0.01 % 0.01 % e - [facility] ( Group ) 1 G ) b y v a g i n a l r o u t e 3 t i m e s e v e r y w e e k This may be an active medication. No end date is available. atorvastatin 10 MG ATORVASTATIN:[id number] 09/01/2018 TABLET 90 completed ATORVASTATIN MEDGEN Oral Tablet 12:00:00 AM ( ATORVASTATIN:[id number] [facility], ) atorvastatin 10 MG ATORVASTATIN:[id number] 09/01/2018 TABLET 90 completed ATORVASTATIN MEDGEN Oral Tablet 12:00:00 AM ( ATORVASTATIN:236957 [facility]) Fluocinonide 1 MG/ML FLUOCINONIDE:[id number] 01/19/2018 CREAM 1 completed FLUOCINONIDE MEDGEN Topical Cream 12:00:00 AM ( FLUOCINONIDE:489905 [facility]) Fluocinonide 1 MG/ML FLUOCINONIDE:[id number] 01/19/2018 CREAM 1 completed FLUOCINONIDE MEDGEN Topical Cream 12:00:00 AM ( FLUOCINONIDE:882513 [facility]) Cholecalciferol 2000 CHOLECALCIFEROL:8016 12/24/2017 completed CHOLECALCIFER MEDGEN UNT Oral Tablet 63 12:00:00 AM OL ( CHOLECALCIFEROL:[address]) Cholecalciferol 2000 CHOLECALCIFEROL:8016 12/24/2017 completed CHOLECALCIFER MEDGEN UNT Oral Tablet 63 12:00:00 AM OL ( CHOLECALCIFEROL:[address]) Aspirin 81 MG ASPIRIN ADULT EC LOW 12/18/2017 comp leted ASPIRIN ADULT MEDGEN Delayed Release Oral DOSE:[id number] 12:00:00 AM EC LOW DOSE (St Tablet ASPIRIN ADULT [facility] EC LOW DOSE:[id number] M [facility]) Aspirin 81 MG ASPIRIN ADULT EC LOW 12/18/2017 comp leted ASPIRIN ADULT MEDGEN Delayed Release Oral DOSE:[id number] 12:00:00 AM EC LOW DOSE (St Tablet ASPIRIN ADULT [facility] EC LOW DOSE:[id number] M [facility]) Insurance Providers Payer name Policy type Policy ID Covered Covered green party's Policy P dangelo / Coverage green party ID relationship to Barger Inf ormation type barger EMPIRE BLUE [id number] 1 [id number] CROSS BLUE 1 [facility] [place] [id number] 1 [id number] [facility] 1 Medicare BLUE CROSS [id number] SP [id number] SENIOR PLAN 1 [place] MEDICARE [id number] SP [id number] BLUE CROSS [id number] SP [id number] SENIOR PLAN 1 BLUE CROSS [id number] SP [id number] SENIOR PLAN 1 Problems, Conditions, and Diagnoses Code Display Name Description Problem Type Effective Data Dates Source(s) Z71.2 Person consulting PERSON CONSULTING Problem 09/29/2019 MEDGEN (St for explanation FOR EXPLANATION OF 12:00:00 AM Kevin's of examination or EXAMINATION OR TEST EST Medical, PC) test findings FINDINGS Z71.2 Person consulting PERSON CONSULTING Problem 09/29/2019 MEDGEN (St for explanation FOR EXPLANATION OF 12:00:00 AM Kevin's of examination or EXAMINATION OR TEST EST Medical, PC) test findings FINDINGS M54.31 Sciatica, right SCIATICA, RIGHT SIDE Problem 08/30/2019 MEDGEN (St side 12:00:00 AM Kevin's EST Medical, PC) M54.31 Sciatica, right SCIATICA, RIGHT SIDE Problem 08/30/2019 MEDGEN (St side 12:00:00 AM Kevin's EST Medical, PC) N39.0 Urinary tract URINARY TRACT Problem 08/18/2019 MEDGEN ( St infection, site INFECTION, SITE NOT 12:00:00 AM Kevin's not specified SPECIFIED EST Medical, PC ) Z09 Encounter for ENCOUNTER FOR Problem 08/18/2019 MEDGEN ( St follow-up FOLLOW-UP 12:00:00 AM Kevin's examination after EXAMINATION AFTER EST Medical, PC) completed COMPLETED TREATMENT treatment for FOR CONDITIONS OTHER conditions other THAN MALIGNANT than malignant NEOPLASM neoplasm N39.0 Urinary tract URINARY TRACT Problem 08/18/2019 MEDGEN ( St infection, site INFECTION, SITE NOT 12:00:00 AM Kevin's not specified SPECIFIED EST Medical, PC ) Z09 Encounter for ENCOUNTER FOR Problem 08/18/2019 MEDGEN ( St follow-up FOLLOW-UP 12:00:00 AM Kevin's examination after EXAMINATION AFTER EST Medical, PC) completed COMPLETED TREATMENT treatment for FOR CONDITIONS OTHER conditions other THAN MALIGNANT than malignant NEOPLASM neoplasm Z00.00 Encounter for ENCOUNTER FOR Problem 01/06/2019 MEDGEN ( St general adult GENERAL ADULT 12:00:00 AM [facility] medical MEDICAL EXAMINATION EDT Medic al, PC) examination WITHOUT ABNORMAL without abnormal FINDINGS findings Z00.00 Encounter for ENCOUNTER FOR Problem 01/06/2019 MEDGEN ( St general adult GENERAL ADULT 12:00:00 AM [facility] medical MEDICAL EXAMINATION EDT Medic al, PC) examination WITHOUT ABNORMAL without abnormal FINDINGS findings M84.364D Stress fracture, STRESS FRACTURE, Problem 07/01/2018 ME DGEN (St left fibula, LEFT FIBULA, 12:00:00 AM Kevin's subsequent SUBSEQUENT ENCOUNTER EST Medi price, PC) encounter for FOR FRACTURE WITH fracture with ROUTINE HEALING routine healing M84.364A Stress fracture, STRESS FRACTURE, Problem 07/01/2018 ME DGEN (St left fibula, LEFT FIBULA, INITIAL 12:00:00 AM Lainey rivera's initial encounter ENCOUNTER FOR EST Medi price, PC) for fracture FRACTURE M84.364D Stress fracture, STRESS FRACTURE, Problem 07/01/2018 ME DGEN (St left fibula, LEFT FIBULA, 12:00:00 AM Kevin's subsequent SUBSEQUENT ENCOUNTER EST Medi price, PC) encounter for FOR FRACTURE WITH fracture with ROUTINE HEALING routine healing M84.364A Stress fracture, STRESS FRACTURE, Problem 07/01/2018 ME DGEN (St left fibula, LEFT FIBULA, INITIAL 12:00:00 AM Lainey rivera's initial encounter ENCOUNTER FOR EST Medi price, PC) for fracture FRACTURE L25.9 Unspecified UNSPECIFIED CONTACT Problem 01/19/2018 MEDG EN (St contact DERMATITIS, 12:00:00 AM [facility] dermatitis, UNSPECIFIED CAUSE EDT Medica l, PC) unspecified cause L25.9 Unspecified UNSPECIFIED CONTACT Problem 01/19/2018 MEDG EN (St contact DERMATITIS, 12:00:00 AM [facility] dermatitis, UNSPECIFIED CAUSE EDT Medica l, PC) unspecified cause Z76.0 Encounter for ENCOUNTER FOR ISSUE Problem 12/24/2017 ME DGEN (St issue of repeat OF REPEAT 12:00:00 AM [facility] prescription PRESCRIPTION EDT Medical, P C) M54.5 Low back pain LOW BACK PAIN Problem 12/24/2017 MEDGEN ( St 12:00:00 AM Kevin[facility] EDT Medical, PC) Z76.0 Encounter for ENCOUNTER FOR ISSUE Problem 12/24/2017 ME DGEN (St issue of repeat OF REPEAT 12:00:00 AM [facility] prescription PRESCRIPTION EDT Medical, P C) M54.5 Low back pain LOW BACK PAIN Problem 12/24/2017 MEDGEN ( St 12:00:00 AM Kevin[facility] EDT Medical, PC) N39.0 Urinary tract Recurrent UTI Diagnosis 08/17/2019 NEXTGEN infection, site 11:30:00 AM (Caremou nt not specified EST Medical - [facility] ) N20.0 Calculus of Nephrolithiasis Diagnosis 08/17/2019 NEXTGEN kidney 11:30:00 AM ([facility] Medical - [facility] ) Surgeries/Procedures Procedure Description Date Indications Data Source(s) Documentation of 04/17/2020 MEDGEN ([facility] current medications 12:00:00 AM Medical, PC) (procedure) EDT OFFICE OUTPATIENT 04/17/2020 MEDGEN ([facility] VISIT 25 MINUTES 12:00:00 AM Medical, PC ) EDT Documentation of 04/17/2020 MEDGEN ([facility] current medications 12:00:00 AM Medical, PC) (procedure) EDT OFFICE OUTPATIENT 04/17/2020 MEDGEN ([facility] VISIT 25 MINUTES 12:00:00 AM Medical, PC ) EDT Documentation of 09/29/2019 MEDGEN ([facility] current medications 12:00:00 AM Medical, PC) (procedure) EST Documentation of 09/29/2019 MEDGEN ([facility] current medications 12:00:00 AM Medical, PC) (procedure) EST Documentation of 09/29/2019 MEDGEN ([facility] current medications 12:00:00 AM Medical, PC) (procedure) EST Documentation of 09/29/2019 MEDGEN ([facility] current medications 12:00:00 AM Medical, PC) (procedure) EST Documentation of 09/29/2019 MEDGEN ([facility] current medications 12:00:00 AM Medical, PC) (procedure) EST Documentation of 09/29/2019 MEDGEN ([facility] current medications 12:00:00 AM Medical, PC) (procedure) EST OFFICE OUTPATIENT 09/29/2019 MEDGEN ([facility] VISIT 15 MINUTES 12:00:00 AM Medical, PC ) EST Documentation of 09/29/2019 MEDGEN ([facility] current medications 12:00:00 AM Medical, PC) (procedure) EST Documentation of 09/29/2019 MEDGEN ([facility] current medications 12:00:00 AM Medical, PC) (procedure) EST Documentation of 09/29/2019 MEDGEN ([facility] current medications 12:00:00 AM Medical, PC) (procedure) EST Documentation of 09/29/2019 MEDGEN ([facility] current medications 12:00:00 AM Medical, PC) (procedure) EST Documentation of 09/29/2019 MEDGEN ([facility] current medications 12:00:00 AM Medical, PC) (procedure) EST Documentation of 09/29/2019 MEDGEN ([facility] current medications 12:00:00 AM Medical, PC) (procedure) EST OFFICE OUTPATIENT 09/29/2019 MEDGEN ([facility] VISIT 15 MINUTES 12:00:00 AM Medical, PC ) EST Documentation of 08/30/2019 MEDGEN ([facility] current medications 12:00:00 AM Medical, PC) (procedure) EST Documentation of 08/30/2019 MEDGEN ([facility] current medications 12:00:00 AM Medical, PC) (procedure) EST Documentation of 08/30/2019 MEDGEN ([facility] current medications 12:00:00 AM Medical, PC) (procedure) EST Documentation of 08/30/2019 MEDGEN ([facility] current medications 12:00:00 AM Medical, PC) (procedure) EST Documentation of 08/30/2019 MEDGEN ([facility] current medications 12:00:00 AM Medical, PC) (procedure) EST Documentation of 08/30/2019 MEDGEN ([facility] current medications 12:00:00 AM Medical, PC) (procedure) EST OFFICE OUTPATIENT 08/30/2019 MEDGEN ([facility] VISIT 15 MINUTES 12:00:00 AM Medical, PC ) EST Documentation of 08/30/2019 MEDGEN ([facility] current medications 12:00:00 AM Medical, PC) (procedure) EST Documentation of 08/30/2019 MEDGEN ([facility] current medications 12:00:00 AM Medical, PC) (procedure) EST Documentation of 08/30/2019 MEDGEN ([facility] current medications 12:00:00 AM Medical, PC) (procedure) EST Documentation of 08/30/2019 MEDGEN ([facility] current medications 12:00:00 AM Medical, PC) (procedure) EST Documentation of 08/30/2019 MEDGEN ([facility] current medications 12:00:00 AM Medical, PC) (procedure) EST Documentation of 08/30/2019 MEDGEN ([facility] current medications 12:00:00 AM Medical, PC) (procedure) EST OFFICE OUTPATIENT 08/30/2019 MEDGEN ([facility] VISIT 15 MINUTES 12:00:00 AM Medical, PC ) EST Documentation of 08/18/2019 MEDGEN ([facility] current medications 12:00:00 AM Medical, PC) (procedure) EST Documentation of 08/18/2019 MEDGEN ([facility] current medications 12:00:00 AM Medical, PC) (procedure) EST Documentation of 08/18/2019 MEDGEN ([facility] current medications 12:00:00 AM Medical, PC) (procedure) EST OFFICE OUTPATIENT 08/18/2019 MEDGEN ([facility] VISIT 25 MINUTES 12:00:00 AM Medical, PC ) EST Documentation of 08/18/2019 MEDGEN ([facility] current medications 12:00:00 AM Medical, PC) (procedure) EST Documentation of 08/18/2019 MEDGEN ([facility] current medications 12:00:00 AM Medical, PC) (procedure) EST Documentation of 08/18/2019 MEDGEN ([facility] current medications 12:00:00 AM Medical, PC) (procedure) EST OFFICE OUTPATIENT 08/18/2019 MEDGEN ([facility] VISIT 25 MINUTES 12:00:00 AM Medical, PC ) EST OFFICE/OUTPATIENT OFFICE/OUTPATIENT 08/17/2019 NEXTG EN ([facility] VISIT NEW VISIT NEW 12:00:00 AM Medical - [facility]) Documentation of 01/06/2019 MEDGEN ([facility] current medications 12:00:00 AM Medical, PC) (procedure) EDT Documentation of 01/06/2019 MEDGEN ([facility] current medications 12:00:00 AM Medical, PC) (procedure) EDT Documentation of 01/06/2019 MEDGEN ([facility] current medications 12:00:00 AM Medical, PC) (procedure) EDT Documentation of 01/06/2019 MEDGEN ([facility] current medications 12:00:00 AM Medical, PC) (procedure) EDT Documentation of 01/06/2019 MEDGEN ([facility] current medications 12:00:00 AM Medical, PC) (procedure) EDT Documentation of 01/06/2019 MEDGEN ([facility] current medications 12:00:00 AM Medical, PC) (procedure) EDT Documentation of 01/06/2019 MEDGEN ([facility] current medications 12:00:00 AM Medical, PC) (procedure) EDT OFFICE OUTPATIENT 01/06/2019 MEDGEN ([facility] VISIT 15 MINUTES 12:00:00 AM Medical, PC ) EDT Documentation of 01/06/2019 MEDGEN ([facility] current medications 12:00:00 AM Medical, PC) (procedure) EDT Documentation of 01/06/2019 MEDGEN ([facility] current medications 12:00:00 AM Medical, PC) (procedure) EDT Documentation of 01/06/2019 MEDGEN ([facility] current medications 12:00:00 AM Medical, PC) (procedure) EDT Documentation of 01/06/2019 MEDGEN ([facility] current medications 12:00:00 AM Medical, PC) (procedure) EDT Documentation of 01/06/2019 MEDGEN ([facility] current medications 12:00:00 AM Medical, PC) (procedure) EDT Documentation of 01/06/2019 MEDGEN ([facility] current medications 12:00:00 AM Medical, PC) (procedure) EDT Documentation of 01/06/2019 MEDGEN ([facility] current medications 12:00:00 AM Medical, PC) (procedure) EDT OFFICE OUTPATIENT 01/06/2019 MEDGEN ([facility] VISIT 15 MINUTES 12:00:00 AM Medical, PC ) EDT Documentation of 07/01/2018 MEDGEN ([facility] current medications 12:00:00 AM Medical, PC) (procedure) EST Documentation of 07/01/2018 MEDGEN ([facility] current medications 12:00:00 AM Medical, PC) (procedure) EST Documentation of 07/01/2018 MEDGEN ([facility] current medications 12:00:00 AM Medical, PC) (procedure) EST Documentation of 07/01/2018 MEDGEN ([facility] current medications 12:00:00 AM Medical, PC) (procedure) EST Documentation of 07/01/2018 MEDGEN ([facility] current medications 12:00:00 AM Medical, PC) (procedure) EST Documentation of 07/01/2018 MEDGEN ([facility] current medications 12:00:00 AM Medical, PC) (procedure) EST Documentation of 07/01/2018 MEDGEN ([facility] current medications 12:00:00 AM Medical, PC) (procedure) EST Documentation of 07/01/2018 MEDGEN ([facility] current medications 12:00:00 AM Medical, PC) (procedure) EST Documentation of 07/01/2018 MEDGEN ([facility] current medications 12:00:00 AM Medical, PC) (procedure) EST Documentation of 07/01/2018 MEDGEN ([facility] current medications 12:00:00 AM Medical, PC) (procedure) EST Documentation of 07/01/2018 MEDGEN ([facility] current medications 12:00:00 AM Medical, PC) (procedure) EST OFFICE OUTPATIENT 07/01/2018 MEDGEN ([facility] VISIT 15 MINUTES 12:00:00 AM Medical, PC ) EST Documentation of 07/01/2018 MEDGEN ([facility] current medications 12:00:00 AM Medical, PC) (procedure) EST Documentation of 07/01/2018 MEDGEN ([facility] current medications 12:00:00 AM Medical, PC) (procedure) EST Documentation of 07/01/2018 MEDGEN ([facility] current medications 12:00:00 AM Medical, PC) (procedure) EST Documentation of 07/01/2018 MEDGEN ([facility] current medications 12:00:00 AM Medical, PC) (procedure) EST Documentation of 07/01/2018 MEDGEN ([facility] current medications 12:00:00 AM Medical, PC) (procedure) EST Documentation of 07/01/2018 MEDGEN ([facility] current medications 12:00:00 AM Medical, PC) (procedure) EST Documentation of 07/01/2018 MEDGEN ([facility] current medications 12:00:00 AM Medical, PC) (procedure) EST Documentation of 07/01/2018 MEDGEN ([facility] current medications 12:00:00 AM Medical, PC) (procedure) EST Documentation of 07/01/2018 MEDGEN ([facility] current medications 12:00:00 AM Medical, PC) (procedure) EST Documentation of 07/01/2018 MEDGEN ([facility] current medications 12:00:00 AM Medical, PC) (procedure) EST Documentation of 07/01/2018 MEDGEN ([facility] current medications 12:00:00 AM Medical, PC) (procedure) EST OFFICE OUTPATIENT 07/01/2018 MEDGEN ([facility] VISIT 15 MINUTES 12:00:00 AM Medical, PC ) EST Documentation of 01/19/2018 MEDGEN ([facility] current medications 12:00:00 AM Medical, PC) (procedure) EDT Documentation of 01/19/2018 MEDGEN ([facility] current medications 12:00:00 AM Medical, PC) (procedure) EDT Documentation of 01/19/2018 MEDGEN ([facility] current medications 12:00:00 AM Medical, PC) (procedure) EDT Documentation of 01/19/2018 MEDGEN ([facility] current medications 12:00:00 AM Medical, PC) (procedure) EDT OFFICE OUTPATIENT 01/19/2018 MEDGEN ([facility] VISIT 15 MINUTES 12:00:00 AM Medical, PC ) EDT Documentation of 01/19/2018 MEDGEN ([facility] current medications 12:00:00 AM Medical, PC) (procedure) EDT Documentation of 01/19/2018 MEDGEN ([facility] current medications 12:00:00 AM Medical, PC) (procedure) EDT Documentation of 01/19/2018 MEDGEN ([facility] current medications 12:00:00 AM Medical, PC) (procedure) EDT Documentation of 01/19/2018 MEDGEN ([facility] current medications 12:00:00 AM Medical, PC) (procedure) EDT OFFICE OUTPATIENT 01/19/2018 MEDGEN ([facility] VISIT 15 MINUTES 12:00:00 AM Medical, PC ) EDT Documentation of 12/24/2017 MEDGEN ([facility] current medications 12:00:00 AM Medical, PC) (procedure) EDT Documentation of 12/24/2017 MEDGEN ([facility] current medications 12:00:00 AM Medical, PC) (procedure) EDT Documentation of 12/24/2017 MEDGEN ([facility] current medications 12:00:00 AM Medical, PC) (procedure) EDT Documentation of 12/24/2017 MEDGEN ([facility] current medications 12:00:00 AM Medical, PC) (procedure) EDT OFFICE OUTPATIENT 12/24/2017 MEDGEN ([facility] VISIT 15 MINUTES 12:00:00 AM Medical, PC ) EDT Documentation of 12/24/2017 MEDGEN ([facility] current medications 12:00:00 AM [facility]) (procedure) EDT Documentation of 12/24/2017 [facility] ([facility] current medications 12:00:00 AM [facility], [facility]) (procedure) EDT Documentation of 12/24/2017 [facility] ([facility] current medications 12:00:00 AM [facility], [facility]) (procedure) EDT Documentation of 12/24/2017 [facility] ([facility] current medications 12:00:00 AM [facility], [facility]) (procedure) EDT OFFICE OUTPATIENT 12/24/2017 [facility] ([facility] VISIT 15 MINUTES 12:00:00 AM [facility], [facility] ) EDT Social History Code Duration Value Status Description Data Source(s ) Smoking 04/20/2020 Tobacco Status: completed Tobacco Status: MEDG EN (St 12:00:00 AM EDT Never smoker Never smoker [facility], Alcohol Use Alcohol Use Rarely PC) Rarely Occupation Occupation housewife housewife Smoking 04/20/2020 Unknown if ever completed Unknown if ever MEDG EN (St 12:00:00 AM EDT smoked smoked [facility]) Smoking 04/17/2020 Tobacco Status: completed Tobacco Status: MEDG EN (St 12:00:00 AM EDT Never smoker Never smoker [facility], Alcohol Use Alcohol Use Rarely PC) Rarely Occupation Occupation housewife housewife Smoking 04/17/2020 Unknown if ever completed Unknown if ever MEDG EN (St 12:00:00 AM EDT smoked smoked [facility]) Vital Signs ID Date Data Source UNK Name Value Range Interpretation Code Description Data Source(s) Heart rate 78 /min 78 /min [facility] ([facility], ) Respiratory rate 14 /min 14 /min [facility] ( [facility], ) Body mass index 26.6 kg/m2 26.6 kg/m2 [facility] ([facility] (BMI) [Ratio] [facility], PC ) Diastolic blood 74 mm[Hg] 74 mm[Hg] [facility] ([facility] pressure [facility], ) Systolic blood 150 mm[Hg] 150 mm[Hg] [facility] ([facility] pressure [facility], ) Body weight 136 lb 136 lb [facility] ([facility], ) Body height 60 in 60 in [facility] ([facility], ) Heart rate 78 /min 78 /min [facility] ([facility], ) Respiratory rate 14 /min 14 /min [facility] ( [facility], ) Body mass index 26.6 kg/m2 26.6 kg/m2 [facility] ([facility] (BMI) [Ratio] Medical, ) Diastolic blood 74 mm[Hg] 74 mm[Hg] [facility] ([facility] pressure [facility], ) Systolic blood 150 mm[Hg] 150 mm[Hg] [facility] ([facility] pressure [facility], ) Body weight 136 lb 136 lb [facility] ([facility], ) Body height 60 in 60 in [facility] ([facility], ) Heart rate 66 /min 66 /min [facility] ([facility], ) Respiratory rate 15 /min 15 /min MED[facility] ( [facility], ) Body mass index 25.9 kg/m2 25.9 kg/m2 [facility] ([facility] (BMI) [Ratio] Medical, ) Diastolic blood 80 mm[Hg] 80 mm[Hg] [facility] ([facility] pressure [facility], ) Systolic blood 166 mm[Hg] 166 mm[Hg] MED[facility] ([facility] pressure [facility], ) Body weight 132.5 lb 132.5 lb [facility] ([facility], ) Body height 60 in 60 in [facility] ([facility], ) Heart rate 66 /min 66 /min [facility] ([facility], ) Respiratory rate 15 /min 15 /min [facility] ( [facility], ) Body mass index 25.9 kg/m2 25.9 kg/m2 [facility] ([facility] (BMI) [Ratio] Medical, ) Diastolic blood 80 mm[Hg] 80 mm[Hg] [facility] ([facility], ) Systolic blood 166 mm[Hg] 166 mm[Hg] [facility] ([facility] pressure [facility], ) Body weight 132.5 lb 132.5 lb [facility] ([facility], ) Body height 60 in 60 in [facility] ([facility], ) Heart rate 90 /min 90 /min MED[facility] ([facility], ) Respiratory rate 16 /min 16 /min MED[facility] ( [facility], ) Diastolic blood 76 mm[Hg] 76 mm[Hg] [facility] ([facility] pressure [facility], ) Systolic blood 170 mm[Hg] 170 mm[Hg] [facility] ([facility] pressure [facility], ) Heart rate 90 /min 90 /min MED[facility] ([facility], ) Respiratory rate 16 /min 16 /min [facility] ( [facility], ) Diastolic blood 76 mm[Hg] 76 mm[Hg] [facility] ([facility] pressure [facility], ) Systolic blood 170 mm[Hg] 170 mm[Hg] MED[facility] ([facility] pressure [facility], ) Heart rate 86 /min 86 /min MED[facility] ([facility], ) Respiratory rate 14 /min 14 /min MED[facility] ( [facility], ) Body mass index 26.6 kg/m2 26.6 kg/m2 [facility] ([facility] (BMI) [Ratio] Medical, ) Diastolic blood 78 mm[Hg] 78 mm[Hg] [facility] ([facility] pressure [facility], ) Systolic blood 136 mm[Hg] 136 mm[Hg] [facility] ([facility] pressure [facility], ) Body weight 136 lb 136 lb [facility] ([facility], ) Body height 60 in 60 in [facility] ([facility], ) Heart rate 86 /min 86 /min MED[facility] ([facility], ) Respiratory rate 14 /min 14 /min [facility] ( [facility], ) Body mass index 26.6 kg/m2 26.6 kg/m2 [facility] ([facility] (BMI) [Ratio] Medical, ) Diastolic blood 78 mm[Hg] 78 mm[Hg] [facility] ([facility] pressure [facility], ) Systolic blood 136 mm[Hg] 136 mm[Hg] MED[facility] ([facility] pressure [facility], ) Body weight 136 lb 136 lb MED[facility] ([facility], ) Body height 60 in 60 in MED[facility] ([facility], ) Heart rate 68 /min 68 /min MED[facility] ([facility], ) Respiratory rate 12 /min 12 /min [facility] ( [facility], ) Body mass index 26.2 kg/m2 26.2 kg/m2 [facility] ([facility] (BMI) [Ratio] Medical, ) Diastolic blood 80 mm[Hg] 80 mm[Hg] [facility] ([facility] pressure [facility], ) Systolic blood 160 mm[Hg] 160 mm[Hg] [facility] ([facility] pressure [facility], ) Body weight 134 lb 134 lb [facility] ([facility], ) Body height 60 in 60 in [facility] ([facility], ) Heart rate 68 /min 68 /min MEDGEN ([facility], ) Respiratory rate 12 /min 12 /min MED[facility] ( [facility], ) Body mass index 26.2 kg/m2 26.2 kg/m2 [facility] ([facility] (BMI) [Ratio] Medical, ) Diastolic blood 80 mm[Hg] 80 mm[Hg] [facility] ([facility] pressure [facility], ) Systolic blood 160 mm[Hg] 160 mm[Hg] [facility] ([facility] pressure [facility], ) Body weight 134 lb 134 lb [facility] ([facility], ) Body height 60 in 60 in [facility] ([facility], ) Heart rate 72 /min 72 /min [facility] ([facility], ) Respiratory rate 12 /min 12 /min MEDGEN ( [place], ) Body mass index 27.3 kg/m2 27.3 kg/m2 [facility] ([facility] (BMI) [Ratio] Medical, ) Diastolic blood 70 mm[Hg] 70 mm[Hg] [facility] ([facility] pressure [facility], ) Systolic blood 132 mm[Hg] 132 mm[Hg] [facility] ([facility] pressure [facility], ) Body weight 140 lb 140 lb [facility] ([facility], ) Body height 60 in 60 in [facility] ([facility], ) Heart rate 72 /min 72 /min [facility], ) Respiratory rate 12 /min 12 /min MED[facility] ( [facility], ) Body mass index 27.3 kg/m2 27.3 kg/m2 [facility] ([facility] (BMI) [Ratio] Medical, ) Diastolic blood 70 mm[Hg] 70 mm[Hg] [facility] ([facility] pressure [facility], ) Systolic blood 132 mm[Hg] 132 mm[Hg] [facility] ([facility] pressure [facility], ) Body weight 140 lb 140 lb [facility] ([facility], ) Body height 60 in 60 in [facility] ([facility], ) Heart rate 62 /min 62 /min [facility] ([facility], ) Respiratory rate 12 /min 12 /min MED[facility] ( [facility], ) Body mass index 25.8 kg/m2 25.8 kg/m2 [facility] ([facility] (BMI) [Ratio] Medical, ) Diastolic blood 76 mm[Hg] 76 mm[Hg] [facility] ([facility] pressure [facility], ) Systolic blood 142 mm[Hg] 142 mm[Hg] MED[facility] ([facility] pressure [facility], ) Body weight 132 lb 132 lb [facility] ([facility], ) Body height 60 in 60 in MED[facility] ([facility], ) Heart rate 62 /min 62 /min MED[facility] ([facility], ) Respiratory rate 12 /min 12 /min MEDGEN ( [place], ) Body mass index 25.8 kg/m2 25.8 kg/m2 [facility] ([facility] (BMI) [Ratio] Medical, ) Diastolic blood 76 mm[Hg] 76 mm[Hg] [facility] ([facility] pressure [facility], ) Systolic blood 142 mm[Hg] 142 mm[Hg] [facility] ([facility] pressure [facility], ) Body weight 132 lb 132 lb [facility] ([facility], ) Body height 60 in 60 in [facility] ([facility], ) Systolic blood 134 mm[Hg] 134 mm[Hg] MED[facility] ([facility] pressure [facility], ) Body weight 134 lb 134 lb [facility] ([facility], ) Body height 60 in 60 in [facility] ([facility], ) Heart rate 72 /min 72 /min [facility] ([facility], ) Respiratory rate 14 /min 14 /min MED[facility] ( [place], ) Body mass index 26.2 kg/m2 26.2 kg/m2 [facility] ([facility] (BMI) [Ratio] Medical, ) Diastolic blood 86 mm[Hg] 86 mm[Hg] [facility] ([facility], ) Systolic blood 134 mm[Hg] 134 mm[Hg] [facility] ([facility], ) Body weight 134 lb 134 lb [facility] ([facility], ) Body height 60 in 60 in [facility] ([facility], ) Heart rate 72 /min 72 /min [facility] ([facility], ) Respiratory rate 14 /min 14 /min [facility] ( [facility], ) Body mass index 26.2 kg/m2 26.2 kg/m2 [facility] ([facility] (BMI) [Ratio] [facility], ) Diastolic blood 86 mm[Hg] 86 mm[Hg] [facility] ([facility], )
[2020-04-20 11:47] LABS: BASO % 0.6 % (0-2.0); EOS % 1.7 % (0-4.5); HEMATOCRIT 39.7 % (32.4-45.2); HEMOGLOBIN 13.4 GM/dl (10.7-15.3); LYMPH % 33.2 % (8-40); MCH 30.8 pg (25.7-33.7); MCHC 33.8 g/dl (32.0-36.0); MEAN CELL VOLUME 91.1 fl (80-96); MEAN PLT VOLUME 6.5 fl (7.5-11.1); MONO % 4.5 % (3.8-10.2); PLATELET COUNT 306 K/MM3 (134-434); RBC 4.35 M/mm3 (3.60-5.2); RDW 13.5 % (11.6-15.6); WHITE BLOOD COUNT 5.9 K/mm3 (4.0-10.8)
[2020-04-20] MEDS ORDERED: ASPIRIN 81 MG CHEWABLE TABLETS ONE (11:50)
[2020-04-20] MEDS ORDERED: ASPIRIN 81 MG CHEWABLE TABLETS PO ONE (11:50)
--- NOTE | 2020-04-20 11:55 | PDOC ---
Attending Attestation - Resident Resident Name: Anabell Griffin - ED Attending Attestation I have performed the following: I have examined & evaluated the patient, The case was reviewed & discussed with the resident, I agree w/resident's findings & plan - HPI HPI: 04/20/20 11:52 79yo F with a PMH of DM, HTN, HLD who presents for evaluation of gait abnormality/imbalance, veering to the side when trying to walk. Patient initially presented to an urgent care center and was referred to the emergency department for further evaluation. Was in her usual state of health yesterday and went to bed at 1am. Woke up and ambulated to the bathroom, noticing that while she was trying to walk straight ahead, instead she listed and veered to the left. Patient believes something similar happened about twenty years ago which self-resolved. No falls or syncope. Patient denies personal or family history of stroke. Without focal weakness or slurred speech. No fevers, chills, chest pain, or shortness of breath. PCP: Dr. Armando - Physicial Exam PE: 04/20/20 11:52 Alert, oriented to person time and place. No carotid bruit, EOMI, PERRL. right sided decreased nasolabial fold, slight droop. airway patent. Strength prox and distally 5/5 throughout. Sensation grossly intact to light touch. KAUFFMAN x4. No cerebellar signs, no dysmetria, bilateral finger to nose and heel to kaminski equal and symmetric. Speech clear. gait unstable, as she veers to the left when walking tandem and straight. - Medical Decision Making 04/20/20 11:53 Vital Signs Temp Pulse Resp BP Pulse Ox 98.1 F 90 19 153/98 98 04/20/20 10:56 04/20/20 10:56 04/20/20 10:56 04/20/20 10:56 04/20/20 11:37 vitals reviewed, mild hypertension otherwise unremarkable NIHSS 1 for her slight decrased nasolabial fold/slight droop last normal at bedtime at 1AM. woke up with gait imbalance 9AM not tpa candidate due to the timing and minor symptoms. fingerstick is normal Head CT - no acute intra cranial abnormalities. cxr is negative for acute pathology. labs and lytes wnl, reassuring. neuro cs with Dr Jenkins, agree with plan ASA 324mg x1 admit for MRI/ neuro eval/stroke eval, medical management and telemetry s/o to hospitalist, to KELLY Melendez at [facility]. 04/20/20 11:56 NIH Stroke Scale - Last Known Well Date/Time & Onset Date Last Known Well: 04/20/20 Time Last Known Well: 01:00 - Initial Evaluation Level of consciousness: Alert Ask patient the month and their age: Answers both correctly Ask patient to open & close eyes; make fist and let go: Obeys both correctly Best gaze (horizontal eye movement): Normal Visual field testing: No visual field loss Facial paresis (Show teeth/raise eyebrows/close eyes tight): Minor paralysis (flattened nasolabial fold, asymmetry on smiling) Motor Function: Left Arm: Normal Motor Function: Right Arm: Normal (extends arm 90 (or 45) degrees for 10 seconds without drift Motor Function: Left Leg: Normal (extends leg 30 degrees for 5 seconds without drift) Motor Function: Right Leg: Normal (extends leg 30 degrees for 5 seconds without drift) Limb Ataxia: No ataxia Sensory(Use pinprick test arms,legs,trunk,face/side to side): Normal Best language (Describe picture, name items, read sentences): No Aphasia Dysarthria (read several words): Normal articulation Extinction and Inattention: No abnormality - Total Score NIH Stroke Scale Score: 1 Discharge - Discharge Information Problems reviewed: Yes Clinical Impression/Diagnosis: Gait abnormality, Facial droop Condition: Guarded - Admission Yes - Follow up/Referral Referrals: Celestine Best MD [Primary Care Provider] - - Patient Discharge Instructions - Post Discharge Activity tPA Exclusion Checklist 0-3hr - Time Elapsed Date last known well: 04/20/20 Time last known well: 01:00 Elaspsed time: Day(s) and 11 Hour(s) and 2 Minutes - Thrombolytic Therapy Candidate Is the patient eligible for Thrombolytic Therapy?: No - Exclusion Criteria 0-3hr SBP greater than 185 or DBP greater than 110mmHg despite tx: No Recent IC/spinal surgery,head trauma or stroke w/in last 3mo: No Hx of previous IC hemorrhage, IC neoplasm, AVM or aneurysm: No Active internal bleeding: No Blding diathesis(low plt ct, inc PTT,INR>1.7 or use of NOAC): No Symptoms suggest subarachnoid hemorrhage: No CT demonstrates multilobar infarct(>1/3 cerebral hemiphere): No Arterial puncture at noncompressible site in previous 7 days: No Blood glucose concentration less than 50mg/dL (2.7mmol/L): No - Relative Exclusion Criteria 0-3h Care team unable to determine eligibility: No IV/IA thrombolysis/thrombectomy @ another hosp prior arrival: No Life expectancy <1yr/severe co-morbid illness/[employer]IL [employer]ERY [employer]IVER on admit: No : No Patient/family refused: No Stroke severity too mild (non-disabling): Yes Recent acute ID (w/in previous 3 months): No Seizure at onset with postictal residual neuro impairments: No Major surgery or serious trauma w/in previous 14 days: No Recent GI or hemorrhage (w/in previous 21 days): No - Ineligibility reason(s) Reasons No tPA given: Outside of window - delayed arrival, See reason(s) noted above
[2020-04-20 11:57] LABS: ALBUMIN 4.3 g/dl (3.4-5.0); BILIRUBIN,TOTAL 1.1 mg/dl (0.2-1); CALCIUM 8.8 mg/dl (8.5-10); CREATININE 0.7 mg/dl (0.55-1.3); POTASSIUM 3.5 mmol/L (3.5-5.1); TOT PROT 7.2 g/dl (6.4-8.2)
[2020-04-20 11:58] LABS: ACTIVATED PTT 24.3 SECONDS (25.2-36.5); CHOLESTEROL 214 mg/dl (50-200); HDL CHOLESTEROL 63 mg/dl (40-60); TRIGLYCERIDES 200 mg/dl (0-150)
[2020-04-20 12:02] LABS: INR 0.99 (0.82-1.09); PROTHROMBIN TIME (PATIENT) 11.1 SEC (10.2-13.0)
[2020-04-20 12:09] LABS: LDL CHOLESTEROL (ONLY SJRH) 111 mg/dL (5-100)
--- NOTE | 2020-04-20 12:10 | HP ---
CHIEF COMPLAINT: Gait abnormality PCP: Dr. Armando HISTORY OF PRESENT ILLNESS: 79 year-old female with a PMH significant for HTN (on three anti-hypertensives), HLD, Type II NIDDM, right-sided sciatica, and chronic back pain, presented to the ED today for evaluation of a gait abnormality. Patient was in her usual state of health yesterday and went to bed at 1am. Woke up this morning and ambulated to the bathroom, noticing that while she was trying to walk straight ahead, she instead listed and veered to the left. She also felt nauseated. She was able to go to the bathroom, sit and stand from the toilet, urinated and had a normal BM. She walked back to bed unassisted, but again veering to the left. She laid down and watched television for about 30 minutes. She then went downstairs by herself holding on to stair rail. If she walked slow she could stay straight, but if she walked too quickly she veered to the left. Again she felt very nauseated. She did not vomit. There was no LOC, she did not fall. Patient believes something similar happened about twenty years ago which self- resolved. Patient had routine visit with PCP Dr. Armando three days ago, complained of low back pain, and plan was to obtain MRI LSS. Also got flu shot. Denies chest pain, SOB, ALLRED, orthopnea, lower extremity edema. She exercises regularly, walks one hour every day. ER course was notable for: (1) CT head negative for acute pathology Recent Travel: No PAST MEDICAL HISTORY: Hypertension Hyperlipidemia Type II NIDDM Sciatica, right side Left fibular stress fracture Chronic back pain PAST SURGICAL HISTORY: lives with , walks one hour every day Bilateral cataracts 1997 Cholecystectomy 2010 Kidney stone 2004 Social History: Smoking: never Alcohol: rare Drugs: no Family history: mother alive @ 93 HTN; father 30 years ago; sister with DM, 2 brothers DM Allergies cefepime Allergy (Intermediate, Verified 04/20/20 10:56) Itching/rash resolved with benadryl HOME MEDICATIONS: Home Medications Medication Instructions Recorded Amlodipine Besylate [Norvasc -] 10 mg PO DAILY 04/20/20 Aspirin [ASA -] 325 mg PO DAILY 04/20/20 Metoprolol Succinate [Toprol Xl] 25 mg PO DAILY 04/20/20 Ramipril [Altace] 10 mg PO BID 04/20/20 Sitagliptin Phos/Metformin HCl 1 each PO BID 04/20/20 [Janumet 50-1,000 mg Tablet] REVIEW OF SYSTEMS CONSTITUTIONAL: Absent: fever, chills, diaphoresis, generalized weakness, malaise, loss of appetite, weight change HEENT: Absent: rhinorrhea, nasal congestion, throat pain, throat swelling, difficulty swallowing, mouth swelling, ear pain, eye pain, visual changes CARDIOVASCULAR: Absent: chest pain, syncope, palpitations, irregular heart rate, lightheadedness, peripheral edema RESPIRATORY: Absent: cough, shortness of breath, dyspnea with exertion, orthopnea, wheezing, stridor, hemoptysis GASTROINTESTINAL: Absent: abdominal pain, abdominal distension, nausea, vomiting, diarrhea, constipation, melena, hematochezia GENITOURINARY: Absent: dysuria, frequency, urgency, hesitancy, hematuria, flank pain, genital pain MUSCULOSKELETAL: Absent: myalgia, arthralgia, joint swelling, back pain, neck pain SKIN: Absent: rash, itching, pallor HEMATOLOGIC/IMMUNOLOGIC: Absent: easy bleeding, easy bruising, lymphadenopathy, frequent infections ENDOCRINE: Absent: unexplained weight gain, unexplained weight loss, heat intolerance, cold intolerance NEUROLOGIC: Absent: headache, focal weakness or paresthesias, dizziness, unsteady gait, seizure, mental status changes, bladder or bowel incontinence PSYCHIATRIC: Absent: anxiety, depression, suicidal or homicidal ideation, hallucinations. PHYSICAL EXAMINATION Vital Signs - 24 hr 04/20/20 04/20/20 04/20/20 10:56 11:37 12:04 Temperature 98.1 F Pulse Rate 90 Pulse Rate [ 85 Apical] Respiratory 19 18 Rate Blood Pressure 153/98 Blood Pressure 144/79 [Right Arm] O2 Sat by Pulse 100 98 97 Oximetry (%) GENERAL: Awake, alert, and fully oriented, in no acute distress. HEAD: Normal with no signs of trauma. EYES: Pupils equal, round and reactive to light, extraocular movements intact, sclera anicteric, conjunctiva clear. No lid lag. EARS, NOSE, THROAT: Ears normal, nares patent, oropharynx clear without exudates. Moist mucous membranes. NECK: Normal range of motion, supple without lymphadenopathy, JVD, or masses. LUNGS: Breath sounds equal, clear to auscultation bilaterally. No wheezes, and no crackles. No accessory muscle use. HEART: Regular rate and rhythm, normal S1 and S2 without murmur, rub or gallop. ABDOMEN: Soft, nontender, not distended, normoactive bowel sounds, no guarding, no rebound, no masses. No hepatomegaly or splenomegaly. MUSCULOSKELETAL: Normal range of motion at all joints. No bony deformities or tenderness. No CVA tenderness. UPPER EXTREMITIES: 2+ pulses, warm, well-perfused. No cyanosis. No clubbing. No peripheral edema. LOWER EXTREMITIES: 2+ pulses, warm, well-perfused. No calf tenderness. No peripheral edema. NEUROLOGICAL: Cranial nerves II-XII intact. Normal speech. Normal gait. PSYCHIATRIC: Cooperative. Good eye contact. Appropriate mood and affect. SKIN: Warm, dry, normal turgor, no rashes or lesions noted, normal capillary refill. Laboratory Results - last 24 hr 04/20/20 04/20/20 04/20/20 10:58 11:06 11:06 WBC RBC Hgb Hct MCV MCH MCHC RDW Plt Count MPV Absolute Neuts (auto) Neutrophils % Lymphocytes % Monocytes % Eosinophils % Basophils % PT with INR 11.1 INR 0.99 PTT (Actin FS) 24.3 L Sodium Potassium Chloride Carbon Dioxide Anion Gap BUN Creatinine Est GFR (CKD-EPI)AfAm Est GFR (CKD-EPI)NonAf POC Glucometer 174 Random Glucose Calcium Total Bilirubin AST ALT Alkaline Phosphatase Creatine Kinase Troponin I Total Protein Albumin Triglycerides 200 H Cholesterol 214 H Total LDL Cholesterol 111 H HDL Cholesterol 63 H 04/20/20 04/20/20 04/20/20 11:06 11:06 11:06 WBC 5.9 RBC 4.35 Hgb 13.4 Hct 39.7 MCV 91.1 MCH 30.8 MCHC 33.8 RDW 13.5 Plt Count 306 MPV 6.5 L Absolute Neuts (auto) 3.6 Neutrophils % 60.0 Lymphocytes % 33.2 Monocytes % 4.5 Eosinophils % 1.7 Basophils % 0.6 PT with INR INR PTT (Actin FS) Sodium 137 Potassium 3.5 Chloride 107 Carbon Dioxide 22 Anion Gap 8 BUN 12.0 Creatinine 0.7 Est GFR (CKD-EPI)AfAm 95.51 Est GFR (CKD-EPI)NonAf 82.41 POC Glucometer Random Glucose 169 H Calcium 8.8 Total Bilirubin 1.1 H AST 45 H ALT 45 Alkaline Phosphatase 56 Creatine Kinase 116 Troponin I < 0.03 Total Protein 7.2 Albumin 4.3 Triglycerides 197 H Cholesterol 215 H Total LDL Cholesterol 114 H HDL Cholesterol 62 H ASSESSMENT/PLAN: 79 year-old female with a PMH significant for HTN, HLD, Type II NIDDM, right- sided sciatica, left fibula stress fracture, and chronic back pain, admitted for unsteady gait. r/o CVA v. TIA --CT head, MRI brain, and US carotids negative for acute pathology --given ASA in ED; start daily ASA 81g, Lipitor 40mg qhs for LDL 114 (Note: patient has NOT been taking daily ASA at home) --neuro consult pending Ischemic EKG changes --troponin neg x 1, two pending --ECG: TWI V1, V2, V3 seen on previous ECG 07/2019 --telemetry monitoring --cardiology consult --Echo ordered Right-sided sciatica Chronic low back pain Left fibula stress fracture --has been seeing an accupuncturist over past several months but still with intermittent episodes of sciatic pain in right leg; is scheduled for an MRI LSS tomorrow, ordered by PCP Dr. Armando --not on pain medications Hypertension --on three anti-hypertensives --not orthostatic --BP elevated this afternoon, will introduce home meds as tolerated to avoid dropping BP too quickly Hyperlipidemia --start Lipitor Type II NIDDM --Novolog sliding scale coverage FEN Fluids: PO intake adequate Electrolytes: replete as indicated Nutrition: diabetic diet; passed dysphagia screen in ED DVT prophylaxis: subq lovenox Physical therapy Dispo: continues to require inpatient care. Full code. Family Medical History Family History: As Documented Visit type - Medication Review Med list reviewed for High Risk Meds patients 65 and older: Yes - Emergency Visit Emergency Visit: Yes ED Registration Date: 04/20/20 Care time: The patient presented to the Emergency Department on the above date and was hospitalized for further evaluation of their emergent condition. - New Patient This patient is new to me today: Yes Date on this admission: 04/20/20 - Critical Care Critical Care patient: No
[2020-04-20] MEDS: metoPROLOL SUCCINATE 25 MG TAB.SR.24H (FP) PO SCH ×3 (16:12→18:55)
[2020-04-20] MEDS: INSULIN SLIDING SCALE (NOVOLOG) 1 VIAL SQ SCH ×2 (16:42→21:17)
[2020-04-20] MEDS: amLODIPine BESYLATE 10 MG TABLET (FP) PO SCH (17:01)
--- NOTE | 2020-04-20 18:17 | CON.CARD ---
Cardiology Consult (text) - Consultation Consultation Note: cc: unsteady gait hpi: 79 f hx htn dm, hld, here with unsteady gait. Pt woke up in middle of night to use restroom and when she walked to bathroom she was swaying to the left. She used bathroom, and walked back to bed and was still swaying when walking. She rested a bit but still happening so came to er. No dizzy, lighthead, cp sob palps loc pnd orthopnea le edema. No hx hrt dz. pmh: per hpi psh: cataracts social: no tob fam: no premature cad, scd ros: per hpi; all others nl medS: Home Medications Medication Instructions Recorded Amlodipine Besylate [Norvasc -] 10 mg PO DAILY 04/20/20 Metoprolol Succinate [Toprol Xl] 25 mg PO DAILY 04/20/20 Ramipril [Altace] 10 mg PO BID 04/20/20 Sitagliptin Phos/Metformin HCl 1 each PO BID 04/20/20 [Janumet 50-1,000 mg Tablet] pe: Vital Signs Period Temp Pulse Resp BP Sys/Benedict Pulse Ox Last 24 Hr 98.1 F-98.9 F 66-92 18-20 131-163/66-98 96-100 nad no jvd rrr s1s2 no mrg cta bl nl eff aao3 no le e/c/c abd nt nd pos bs no jaundice diaphoresis pos dp pt no carotid bruits Laboratory Last Values WBC 5.9 K/mm3 (4.0-10.8) 04/20/20 11:06 RBC 4.35 M/mm3 (3.60-5.2) 04/20/20 11:06 Hgb 13.4 GM/dl (10.7-15.3) 04/20/20 11:06 Hct 39.7 % (32.4-45.2) 04/20/20 11:06 MCV 91.1 fl (80-96) 04/20/20 11:06 MCH 30.8 pg (25.7-33.7) 04/20/20 11:06 MCHC 33.8 g/dl (32.0-36.0) 04/20/20 11:06 RDW 13.5 % (11.6-15.6) 04/20/20 11:06 Plt Count 306 K/MM3 (134-434) 04/20/20 11:06 MPV 6.5 fl (7.5-11.1) L 04/20/20 11:06 Absolute Neuts (auto) 3.6 K/mm3 04/20/20 11:06 Neutrophils % 60.0 % (42.8-82.8) 04/20/20 11:06 Lymphocytes % 33.2 % (8-40) 04/20/20 11:06 Monocytes % 4.5 % (3.8-10.2) 04/20/20 11:06 Eosinophils % 1.7 % (0-4.5) 04/20/20 11:06 Basophils % 0.6 % (0-2.0) 04/20/20 11:06 PT with INR 11.1 SEC (10.2-13.0) 04/20/20 11:06 INR 0.99 (0.82-1.09) 04/20/20 11:06 PTT (Actin FS) 24.3 SECONDS (25.2-36.5) L 04/20/20 11:06 Sodium 137 mmol/L (136-145) 04/20/20 11:06 Potassium 3.5 mmol/L (3.5-5.1) 04/20/20 11:06 Chloride 107 mmol/L (98-107) 04/20/20 11:06 Carbon Dioxide 22 mmol/L (21-32) 04/20/20 11:06 Anion Gap 8 MMOL/L (8-16) 04/20/20 11:06 BUN 12.0 mg/dl (7-18) 04/20/20 11:06 Creatinine 0.7 mg/dl (0.55-1.3) 04/20/20 11:06 Est GFR (CKD-EPI)AfAm 95.51 04/20/20 11:06 Est GFR (CKD-EPI)NonAf 82.41 04/20/20 11:06 POC Glucometer 181 UNITS (80-120) 04/20/20 16:29 Random Glucose 169 mg/dl (74-106) H 04/20/20 11:06 Calcium 8.8 mg/dl (8.5-10) 04/20/20 11:06 Total Bilirubin 1.1 mg/dl (0.2-1) H 04/20/20 11:06 AST 45 U/L (15-37) H 04/20/20 11:06 ALT 45 U/L (13-61) 04/20/20 11:06 Alkaline Phosphatase 56 U/L (45-117) 04/20/20 11:06 Creatine Kinase 116 U/L (26-192) 04/20/20 11:06 Troponin I < 0.03 ng/ml (0.00-0.05) 04/20/20 17:00 Total Protein 7.2 g/dl (6.4-8.2) 04/20/20 11:06 Albumin 4.3 g/dl (3.4-5.0) 04/20/20 11:06 Triglycerides 197 mg/dl (0-150) H 04/20/20 11:06 Triglycerides 200 mg/dl (0-150) H 04/20/20 11:06 Cholesterol 214 mg/dl (50-200) H 04/20/20 11:06 Cholesterol 215 mg/dl (50-200) H 04/20/20 11:06 Total LDL Cholesterol 111 mg/dL (5-100) H 04/20/20 11:06 Total LDL Cholesterol 114 mg/dl (5-100) H 04/20/20 11:06 HDL Cholesterol 62 mg/dl (40-60) H 04/20/20 11:06 HDL Cholesterol 63 mg/dl (40-60) H 04/20/20 11:06 Blood Type O POSITIVE 04/20/20 11:06 Antibody Screen Negative 04/20/20 11:06 tele: sr ecg: sr nl intervals rbbb (old), no sig change prior cxr: Clear carotids 03/2020: no sig stenosis mri brain: no acute path a/p: 79 f hx htn dm, hld, here with unsteady gait. unsteady gait, presyncope: -tele, carotids, MRI brain, trop, all unremarkable -ortho vitals wnl -echo pending -neuro eval pending -does not seem cardiac related, consider PT eval htn: -stable on current meds hld: -stable on statin abnl ecg: -ecg with rbbb, seen on prior ecg as well, not acute -no signs acs or chf -check echo, if unremarkable then no further w/u for likely benign rbbb
--- NOTE | 2020-04-20 18:40 | CON.NEURO ---
Consult Consult Specialty:: NEUROLOGY-SHERIDAN RAI for DR. ANDERSON - History of Present Illness History of Present Illness: 79 year-old female with a PMH significant for HTN (on three anti-hypertensives), HLD, Type II NIDDM, right-sided sciatica, and chronic back pain, presented to the ED today for evaluation of a gait abnormality. Patient was in her usual state of health yesterday and went to bed at 1am. Woke up this morning and ambulated to the bathroom, noticing that while she was trying to walk straight ahead, she instead listed and veered to the left. She also felt nauseated. She was able to go to the bathroom, sit and stand from the toilet, urinated and had a normal BM. She walked back to bed unassisted, but again veering to the left. She laid down and watched television for about 30 minutes. She then went downstairs by herself holding on to stair rail. If she walked slow she could stay straight, but if she walked too quickly she veered to the left. Again she felt very nauseated. She did not vomit. There was no LOC, she did not fall. Patient believes something similar happened about twenty years ago which self- resolved. Patient had routine visit with PCP Dr. Armando three days ago, complained of low back pain, and plan was to obtain MRI LSS. Also got flu shot. Denies chest pain, SOB, ALLRED, orthopnea, lower extremity edema. She exercises regularly, walks one hour every day. -States she had a brief period right after waking up of tendency to tilt to left acc. by mild nausea, resolved spont.Denies all other neurologic symptoms.Not on ASA/other antiplat. agent. - Past Medical History Cardio/Vascular: Yes: HTN, Hyperlipdemia Renal/: Yes: UTI ...: No Endocrine: Yes: Diabetes Mellitus - Alcohol/Substance Use Hx Alcohol Use: Yes - Smoking History Smoking history: Never smoked Have you smoked in the past 12 months: No Home Medications - Allergies Allergies/Adverse Reactions: Allergies Allergy/AdvReac Type Severity Reaction Status Date / Time cefepime Allergy Intermediate Itching/poornima Verified 04/20/20 10:56 h - Home Medications Home Medications: Ambulatory Orders Amlodipine Besylate [Norvasc -] 10 mg PO DAILY 04/20/20 Metoprolol Succinate [Toprol Xl] 25 mg PO DAILY 04/20/20 Ramipril [Altace] 10 mg PO BID 04/20/20 Sitagliptin Phos/Metformin HCl [Janumet 50-1,000 mg Tablet] 1 each PO BID 04/20/20 Physical Exam-Neuro Vital Signs: Vital Signs Temperature 98.3 F 04/20/20 16:01 Pulse Rate 82 04/20/20 16:18 Respiratory Rate 18 04/20/20 16:01 Blood Pressure 162/77 04/20/20 16:18 O2 Sat by Pulse Oximetry (%) 96 04/20/20 16:01 Labs: CBC, BMP 04/20/20 11:06 04/20/20 11:06 INR, PTT INR 0.99 (0.82-1.09) 04/20/20 11:06 - Neuro Exam DTR's: 1+ Left Brachioradialis, 1+ Right Brachioradialis, 1+ Left Achilles, 1+ Right Achilles, 2+ Left Bicep, 2+ Right Bicep, 2+ Left Tricep, 2+ Right Tricep Babinski: Absent Coordination: Normal: Finger to Nose (Normal) Motor Strength: 5/5: Left Arm, Right Arm, Left Leg, Right Leg (No drift) Gait: Normal Imaging - Results MRI: Report Reviewed ("No acute ischemic event".) Other: Report Reviewed (Carotid ultrasound without sig. abn.) Assessment/Plan Likwely small vessel ischemic lacunar infarction in left alex/cerebellar peduncle region causing a TIA. She has remitted, has vasc. risk factors. Suggest: ASA 81mg daily, requested to exercise caution while walking. F/U with Dr. Jenkins, please give her his office# upon discharge. Thank you, Salazar Pierre MD
[2020-04-20] MEDS: RAMIPRIL 5 MG CAPSULE PO SCH (21:17)
[2020-04-20] MEDS ORDERED: RAMIPRIL 5 MG CAPSULE PO SCH (22:00)
[2020-04-20] MEDS ORDERED: ATORVASTATIN CA 40 MG TABLET (FP) PO SCH (22:00)
[2020-04-21] MEDS: INSULIN SLIDING SCALE (NOVOLOG) 1 VIAL SQ SCH ×2 (06:41→11:55)
[2020-04-21 08:34] LABS: ALBUMIN 3.6 g/dl (3.4-5.0); CALCIUM 8.6 mg/dl (8.5-10); CREATININE 0.7 mg/dl (0.55-1.3); POTASSIUM 3.9 mmol/L (3.5-5.1); TOT PROT 6.3 g/dl (6.4-8.2)
[2020-04-21 08:45] LABS: BASO % 1.1 % (0-2.0); EOS % 2.9 % (0-4.5); HEMATOCRIT 36.7 % (32.4-45.2); HEMOGLOBIN 12.1 GM/dl (10.7-15.3); LYMPH % 35.2 % (8-40); MCHC 33.1 g/dl (32.0-36.0); MEAN CELL VOLUME 90.6 fl (80-96); MEAN PLT VOLUME 6.9 fl (7.5-11.1); MONO % 6.9 % (3.8-10.2); NEUT % 53.9 % (42.8-82.8); PLATELET COUNT 229 K/MM3 (134-434); RBC 4.05 M/mm3 (3.60-5.2); RDW 13.1 % (11.6-15.6); WHITE BLOOD COUNT 5.5 K/mm3 (4.0-10.8)
[2020-04-21] MEDS: amLODIPine BESYLATE 10 MG TABLET (FP) PO SCH (09:14)
[2020-04-21] MEDS: RAMIPRIL 5 MG CAPSULE PO SCH (09:15)
[2020-04-21 09:22] VITALS: BMI 21.7
[2020-04-21 09:50] VITALS: BP 120/74; PULSE 72; TEMP 97.8
[2020-04-21] MEDS ORDERED: RAMIPRIL 5 MG CAPSULE PO SCH (10:00)
[2020-04-21] MEDS ORDERED: ENOXAPARIN NA (PORCINE) 30 MG/0.3 ML DISP.SYRIN SQ SCH (10:00)
[2020-04-21] MEDS ORDERED: metoPROLOL SUCCINATE 25 MG TAB.SR.24H (FP) PO SCH (10:00)
[2020-04-21] MEDS ORDERED: amLODIPine BESYLATE 10 MG TABLET (FP) PO SCH (10:00)
[2020-04-21] MEDS ORDERED: ASPIRIN 81 MG CHEWABLE TABLETS PO SCH (10:00)
[2020-04-21] MEDS ORDERED: POTASSIUM CHLORIDE ORAL LIQUID 20 MEQ/15 ML PO ONE (10:30)
--- NOTE | 2020-04-21 10:46 | ECHO ---
Version: 1 Name: KATHY OLSON Exam: Adult Echocardiogram Study Date: 04/21/2020, 9:53 AM Age: 79 Years MMode/2D Measurements & Calculations IVSd: 1.25 cm LVIDs: 2.27 cm LVIDd: 3.7 cm LVPWd: 1.10 cm ACS: 1.59 cm Ao root diam: 2.6 cm LVOT diam: 2.00 cm LA dimension: 3.8 cm Doppler Measurements & Calculations MV E max oli: 59.7 cm/sec MV A max oli: 81.6 cm/sec MV E/A: 0.73 Ao max P.6 mmHg EDU(I,D): 2.8 cm Ao mean P.1 mmHg LV V1 mean: 84.9 cm/sec Ao V2 max: 147.0 cm/sec LV V1 mean P.3 mmHg PI end-d oli: 90.3 cm/sec TR max oli: 257.3 cm/sec TR max P.5 mmHg Left Ventricle There is mild asymmetric left ventricular hypertrophy. Left ventricular systolic function is normal. Ejection Fraction = 60%. The transmitral spectral Doppler flow pattern is suggestive of impaired LV relaxatio n. Right Ventricle The right ventricle is normal in size and function. Atria The left atrium is mildly dilated. Right atrial size is normal. Mitral Valve The mitral valve is normal. There is mild mitral regurgitation. Tricuspid Valve There is mild tricuspid regurgitation. Right ventricular systolic pressure is normal. Aortic Valve The aortic valve is normal in structure and function. No hemodynamically significant valvular aortic stenosis. No aortic regurgitation is present. Pulmonic Valve The pulmonic valve is not well seen, but is grossly normal. Trace to mild pulmonic valvular regurgit ation. Great Vessels The aortic root is normal size. Pericardium/Pleura There is no pericardial effusion. Summary Statements There is mild asymmetric left ventricular hypertrophy. Left ventricular systolic function is normal. The transmitral spectral Doppler flow pattern is suggestive of impaired LV relaxation. The left atrium is mildly dilated. There is mild mitral regurgitation. There is mild tricuspid regurgitation. Right ventricular systolic pressure is normal. There is no pericardial effusion. MD Yuen *Anupamascone 04/21/2020, 10:45 AM Ordering Physician: Tricia Melendez Referring Physician: Tricia Melendez Performed By: Fernanda Valente
--- NOTE | 2020-04-21 11:27 | DS ---
Physical Exam: SUBJECTIVE: Patient seen and examined OBJECTIVE: Vital Signs Period Temp Pulse Resp BP Sys/Benedict Pulse Ox Last 24 Hr 97.5 F-98.9 F 59-92 18-20 120-163/52-79 94-98 PHYSICAL EXAM GENERAL: The patient is awake, alert, and fully oriented, in no acute distress. HEAD: Normal with no signs of trauma. EYES: PERRL, extraocular movements intact, sclera anicteric, conjunctiva clear. ENT: Ears normal, nares patent, oropharynx clear without exudates, moist mucous membranes. NECK: Trachea midline, full range of motion, supple. LUNGS: Breath sounds equal, clear to auscultation bilaterally, no wheezes, no crackles, no accessory muscle use. HEART: Regular rate and rhythm, S1, S2 without murmur, rub or gallop. ABDOMEN: Soft, nontender, nondistended, normoactive bowel sounds, no guarding, no rebound, no hepatosplenomegaly, no masses. EXTREMITIES: 2+ pulses, warm, well-perfused, no edema. NEUROLOGICAL: Cranial nerves II through XII grossly intact. Normal speech, gait normal PSYCH: Normal mood, normal affect. SKIN: Warm, dry, normal turgor, no rashes or lesions noted. LABS Laboratory Results - last 24 hr 04/20/20 04/20/20 04/20/20 11:06 11:06 11:06 WBC 5.9 RBC 4.35 Hgb 13.4 Hct 39.7 MCV 91.1 MCH 30.8 MCHC 33.8 RDW 13.5 Plt Count 306 MPV 6.5 L Absolute Neuts (auto) 3.6 Neutrophils % 60.0 Lymphocytes % 33.2 Monocytes % 4.5 Eosinophils % 1.7 Basophils % 0.6 PT with INR 11.1 INR 0.99 PTT (Actin FS) 24.3 L Sodium Potassium Chloride Carbon Dioxide Anion Gap BUN Creatinine Est GFR (CKD-EPI)AfAm Est GFR (CKD-EPI)NonAf POC Glucometer Random Glucose Hemoglobin A1c % Calcium Total Bilirubin AST ALT Alkaline Phosphatase Creatine Kinase Troponin I Total Protein Albumin Triglycerides 200 H Cholesterol 214 H Total LDL Cholesterol 111 H HDL Cholesterol 63 H TSH Blood Type Antibody Screen 04/20/20 04/20/20 04/20/20 11:06 11:06 11:06 WBC RBC Hgb Hct MCV MCH MCHC RDW Plt Count MPV Absolute Neuts (auto) Neutrophils % Lymphocytes % Monocytes % Eosinophils % Basophils % PT with INR INR PTT (Actin FS) Sodium 137 Potassium 3.5 Chloride 107 Carbon Dioxide 22 Anion Gap 8 BUN 12.0 Creatinine 0.7 Est GFR (CKD-EPI)AfAm 95.51 Est GFR (CKD-EPI)NonAf 82.41 POC Glucometer Random Glucose 169 H Hemoglobin A1c % Calcium 8.8 Total Bilirubin 1.1 H AST 45 H ALT 45 Alkaline Phosphatase 56 Creatine Kinase 116 Troponin I < 0.03 Total Protein 7.2 Albumin 4.3 Triglycerides 197 H Cholesterol 215 H Total LDL Cholesterol 114 H HDL Cholesterol 62 H TSH Blood Type O POSITIVE Antibody Screen Negative 04/20/20 04/20/20 04/20/20 16:29 16:52 16:52 WBC RBC Hgb Hct MCV MCH MCHC RDW Plt Count MPV Absolute Neuts (auto) Neutrophils % Lymphocytes % Monocytes % Eosinophils % Basophils % PT with INR INR PTT (Actin FS) Sodium Potassium Chloride Carbon Dioxide Anion Gap BUN Creatinine Est GFR (CKD-EPI)AfAm Est GFR (CKD-EPI)NonAf POC Glucometer 181 Random Glucose Hemoglobin A1c % 6.2 Calcium Total Bilirubin AST ALT Alkaline Phosphatase Creatine Kinase Troponin I Total Protein Albumin Triglycerides Cholesterol Total LDL Cholesterol HDL Cholesterol TSH 1.03 Blood Type Antibody Screen 04/20/20 04/20/20 04/20/20 17:00 21:14 23:06 WBC RBC Hgb Hct MCV MCH MCHC RDW Plt Count MPV Absolute Neuts (auto) Neutrophils % Lymphocytes % Monocytes % Eosinophils % Basophils % PT with INR INR PTT (Actin FS) Sodium Potassium Chloride Carbon Dioxide Anion Gap BUN Creatinine Est GFR (CKD-EPI)AfAm Est GFR (CKD-EPI)NonAf POC Glucometer 116 Random Glucose Hemoglobin A1c % Calcium Total Bilirubin AST ALT Alkaline Phosphatase Creatine Kinase Troponin I < 0.03 < 0.03 Total Protein Albumin Triglycerides Cholesterol Total LDL Cholesterol HDL Cholesterol TSH Blood Type Antibody Screen 04/21/20 04/21/20 04/21/20 06:29 07:00 07:00 WBC 5.5 RBC 4.05 Hgb 12.1 Hct 36.7 MCV 90.6 MCH 30.0 MCHC 33.1 RDW 13.1 Plt Count 229 MPV 6.9 L Absolute Neuts (auto) 2.9 Neutrophils % 53.9 Lymphocytes % 35.2 Monocytes % 6.9 Eosinophils % 2.9 Basophils % 1.1 PT with INR INR PTT (Actin FS) Sodium 140 Potassium 3.9 Chloride 108 H Carbon Dioxide 23 Anion Gap 9 BUN 13.0 Creatinine 0.7 Est GFR (CKD-EPI)AfAm 95.51 Est GFR (CKD-EPI)NonAf 82.41 POC Glucometer 105 Random Glucose 101 Hemoglobin A1c % Calcium 8.6 Total Bilirubin 1.0 AST 37 ALT 37 Alkaline Phosphatase 44 L D Creatine Kinase Troponin I Total Protein 6.3 L Albumin 3.6 Triglycerides Cholesterol Total LDL Cholesterol HDL Cholesterol TSH Blood Type Antibody Screen HOSPITAL COURSE: Date of Admission:04/20/20 Date of Discharge: 04/21/20 Minutes to complete discharge: 45 Discharge Summary Problems reviewed: Yes Reason For Visit: ABNORMAL GAIT/FACIAL DROOP HTN Hyperlipidemia Sciatica DMII TIA Lower back pain (chronic) Procedures: Principal: CXR 04/20/2020. Impression: No acute chest pathology. Reported By: Jhonny Barba MD 04/20/[address] head 04/20/2020. IMPRESSION: No evidence of acute intracranial pathology. Reported By: Michel Garcia MD 04/20/20 1142. . MRI brain 04/20/2020. FINDINGS: There is no acute ischemic infarct. Moderate chronic small vessel ischemic disease in the white matter of both cerebral hemispheres. Mild generalized cerebral and cerebellar parenchymal volume loss. No midline shift or herniation changes. No hydrocephalus. Impression: No acute ischemic infarct. Reported By: Patrick Andrew MD 04/20/20 1431. . CArotid Doppler 04/20/2020. Real time and doppler evaluation of the carotid arteries demonstrates the following: A small amount of atherosclerotic plaque is identified at the carotid bifurcations bilaterally. The plaque is more extensive on the left side. Doppler velocity measurements are within normal limits within the common carotid and proximal internal and external carotid arteries with no velocity elevations suspicious for hemodynamically significant stenoses. Forward flow is present within both vertebral arteries. IMPRESSION: mild atherosclerotic disease with no evidence of hemodynamically significant stenoses. Reported By: Michel Garcia MD 04/20/20 1505. Other Procedures: Echocardiogram 04/21/2020. Impression: EF 60%. Mild asymmetric LVH. LV systolic function is normal. The transmitral spectral doppler flow pattern is suggestive of impaired LV relaxation. LA is mildly dialted. Mild Mitral regurg. mild tricuspid regurg. RV systolic pressure is normal. No pericardial effusion. Reported by Wilfrid Roberts MD 04/21/2020 1045 Hospital Course: 79 year-old female with a PMH significant for HTN (on three anti-hypertensives), HLD, Type II NIDDM, right-sided sciatica, and chronic back pain, presented to the ED today for evaluation of a gait abnormality. Patient was in her usual state of health yesterday and went to bed at 1am. Woke up this morning and ambulated to the bathroom, noticing that while she was trying to walk straight ahead, she instead listed and veered to the left. She also felt nauseated. She was able to go to the bathroom, sit and stand from the toilet, urinated and had a normal BM. She walked back to bed unassisted, but again veering to the left. She laid down and watched television for about 30 minutes. She then went downstairs by herself holding on to stair rail. If she walked slow she could stay straight, but if she walked too quickly she veered to the left. Again she felt very nauseated. She did not vomit. There was no LOC, she did not fall. Patient believes something similar happened about twenty years ago which self- resolved. Patient had routine visit with PCP Dr. Armando three days ago, complained of low back pain, and plan was to obtain MRI LSS. Also got flu shot. Denies chest pain, SOB, ALLRED, orthopnea, lower extremity edema. She exercises regularly, walks one hour every day. ER course was notable for: (1) CT head negative for acute pathology Med-Surg Course: --CT head, MRI brain, and US carotids negative for acute pathology --given ASA in ED; start daily ASA 81g, Lipitor 40mg qhs for LDL 114 (Note: patient has NOT been taking daily ASA at home) --neuro consulted and thought pt likely has "small vessel lacunar infarction in left alex/cerebellar peduncle region causing a TIA". Pt encouraged to follow up with Neuro on an outpatient basis. EKG without Ischemic changes. troponin neg x 2 negative. Orthostatic vitals WNL. cardiology consulted and Echo done, which did not reveal any acute pathology. On 04/21, pt deemed stable for discharge home with outpt follow-up. Plan of Treatment: NEW MEDS: Aspirin 81mg daily Lipitor 40mg daily Please schedule follow appointment with: 1. your primary care provider upon discharge 2.Shaka Jenkins MD Address: [address] [place] [address] Appointments: [email or web address] Condition: Improved - Instructions Diet, Activity, Other Instructions: PATIENT EDUCATION: Discharge Instructions for Transient Ischemic Attack (TIA) You have been diagnosed with a transient ischemic attack (TIA). A TIA is also known as a mini-stroke. Blood could not reach part of your brain for a short period of time. Unlike a stroke, a TIA does not usually cause lasting damage. If you think you are having symptoms of a TIA or stroke, get medical help right away. Do this even if your symptoms go away. Prevention Take your medicines exactly as directed. Dont skip doses. Learn to take your blood pressure. Write down the numbers and tell your healthcare provider. Learn your cholesterol level. Follow your doctors advice about how to keep cholesterol under control. Make these lifestyle changes: Quit smoking. Join a stop-smoking program to improve your chances of success. Ask your healthcare provider about medicines or other methods to help you quit. Limit your alcohol. Don't have more than 2 drinks a day if you're a man and no more than 1 drink a day if you're a woman. Keep a healthy weight. Get help to lose any extra pounds. If you are overweight, your healthcare provider will work with you to lose weight and lower your body mass index (BMI) to a normal or near-normal level. Making diet changes and increasing physical activity can help. Start an exercise program. Ask your healthcare provider how to get started and how much activity you should try to get on a daily or weekly basis. You can benefit from simple activities such as walking or gardening. Learn ways to manage your stress. There are many methods to manage stress. These can help you deal with stress in your home and work life. You may also need to change what you eat. Your healthcare provider may refer you to a registered dietitian for help with diet changes. These changes may include: Eating less fat and cholesterol Having less salt (sodium), especially if you have high blood pressure Eating more fresh vegetables and fruits Eating lean proteins, such as fish, poultry, and legumes (beans and peas) Eating less red meat and processed meats Choosing low-fat dairy products Using vegetable and nut oils in small amounts Limiting sweet and processed foods such as chips, cookies, and baked goods To cut back on sodium: Limit the amount of canned, dried, packaged, and fast foods you eat. Dont add salt to your food. Season foods with herbs instead of salt when you cook. Follow-up care If you are taking certain medicines, you may need blood tests to check for progress or problems. Have blood tests as often as prescribed by your healthcare provider. Call 911 Call right away if you have any of these: Weakness, tingling, or loss of feeling on 1 side of your face or body Sudden double vision, or trouble seeing in 1 or both eyes Sudden trouble talking, or slurring your speech Trouble understanding other people speaking Sudden, severe headache Dizziness, loss of balance, a spinning feeling, or a sense of falling Blackouts Seizures Reference: [email or web address].[email or web address]-[email or web address] Referrals: Celestine Best MD [Primary Care Provider] - Disposition: HOME - Home Medications Comprehensive Discharge Medication List: Ambulatory Orders Amlodipine Besylate [Norvasc -] 10 mg PO DAILY 04/20/20 Metoprolol Succinate [Toprol Xl] 25 mg PO DAILY 04/20/20 Ramipril [Altace] 10 mg PO BID 04/20/20 Sitagliptin Phos/Metformin HCl [Janumet 50-1,000 mg Tablet] 1 each PO BID Amlodipine Besylate [Norvasc -] 10 mg PO DAILY tablet 04/21/20 Aspirin [ASA -] 81 mg PO DAILY 30 Days #30 tab.chew 04/21/20 Atorvastatin Ca [Lipitor] 40 mg PO HS 30 Days #30 tablet 04/21/20 Prescription Drug Monitoring Program (I-STOP) results: I-STOP not reviewed Problem List - Problems (1) TIA (transient ischemic attack) Code(s): G45.9 - TRANSIENT CEREBRAL ISCHEMIC ATTACK, UNSPECIFIED (2) Gait abnormality Code(s): R26.9 - UNSPECIFIED ABNORMALITIES OF GAIT AND MOBILITY (3) HTN (hypertension) Code(s): I10 - ESSENTIAL (PRIMARY) HYPERTENSION Qualifiers: Hypertension type: unspecified Qualified Code(s): I10 - Essential (primary) hypertension This patient is new to me today: Yes Date on this admission: 04/21/20 Emergency Visit: Yes ED Registration Date: 04/20/20 Care time: The patient presented to the Emergency Department on the above date and was hospitalized for further evaluation of their emergent condition. Critical Care patient: No - Discharge Referral Referred to [facility] No
[2020-04-22] MEDS ORDERED: ENOXAPARIN NA (PORCINE) 40 MG/0.4 ML DISP.SYRIN SQ SCH (10:00)
--- NOTE | 2020-04-22 16:14 | EKG ---
Test Reason : Blood Pressure : / mmHG Vent. Rate : 094 BPM Atrial Rate : 094 BPM P-R Int : 140 ms QRS Dur : 118 ms QT Int : 368 ms P-R-T Axes : 049 014 018 degrees QTc Int : 460 ms NORMAL SINUS RHYTHM INCOMPLETE RIGHT BUNDLE BRANCH BLOCK ABNORMAL ECG WHEN COMPARED WITH ECG OF 07-AUG-2019 13:01, PREMATURE ATRIAL COMPLEXES ARE NO LONGER PRESENT ST NOW DEPRESSED IN ANTERIOR LEADS T WAVE INVERSION NOW EVIDENT IN ANTERIOR LEADS Confirmed by MD Dennis, Varinder ([id number]) on 04/22/2020 4:13:57 PM Referred By: PAL JAUREGUI Confirmed By:Varinder Collins MD
== END 2020-04-21 13:39 | disposition home or self-care (01) | DRG 69 ==
LOC: FER 10:54 → FM/S 11:48 → OBSVTOIN 11:48
PROVIDERS: ADMIT Internal Medicine; ATTEND Nurse Practitioner Family
DX: G45.9 Transient cerebral ischemic attack, unspecified (principal); R26.9 Unspecified abnormalities of gait and mobility; M54.41 Lumbago with sciatica, right side; I10 Essential (primary) hypertension; E11.9 Type 2 diabetes mellitus without complications; R55 Syncope and collapse
CPT/HCPCS: 36415; 70450-TC; 70551-TC; 71045-TC-FY; 80053; 80061; 82550; 82962; 83036; 83721; 84443; 84484; 85025; 85610; 85730; 86850; 86900; 86901; 93005; 93306-TC; 93880-TC; 97116-GP; 97161-GP; 99285-25; U0003